=== PATIENT | female | born 1975 | race Two or more races ===

== ENCOUNTER 2016-08-04 10:43 | Inpatient (IN) | payer SELFPAY ==
[~2016-08-04] VITALS: Ht 165.1 cm; Wt 63.0 kg
[~2016-08-04 10:43] MED LIST: OXYC-323 PO
[2016-08-04] MEDS ORDERED: IV NORMAL SALINE 1000ML BAG 1,000 ML IV ONE (11:00)
--- NOTE | 2016-08-04 11:25 | RAD ---
Portable AP view CXR: Clinical indications: Palpitations. Substernal chest pain radiating to the left side. Chills and aches for 3 days which is worse today. Comparison: None available.. Findings: No acute lung infiltrate or pleural effusion or pulmonary edema or lung mass or pneumothorax is seen. The heart size, pulmonary vasculature, mediastinum and both glenny are unremarkable. Impression: No acute radiographic abnormality is seen.
[2016-08-04 11:33] LABS: BASO % 1 % (0-3); EOS % 1 % (0-3); HEMATOCRIT 42.9 % (36.0-47.0); HEMOGLOBIN 14.9 g/dL (12.0-15.5); LYMPH # 1.3 x10^3/uL (1.0-4.8); LYMPH % 20 % (24-48); MEAN CORPUSCULAR HEMOGLOBIN 30 pg (25-35); MEAN CORPUSCULAR HGB CONC 35 g/dL (31-37); MEAN CORPUSCULAR VOLUME 87 fL (79-100); MONO % 6 % (0-9); NEUT % 73 % (31-73); PLATELET COUNT 167 x10^3/uL (140-400); RED BLOOD COUNT 4.95 x10^6/uL (3.50-5.40); RED CELL DISTRIBUTION WIDTH 12.7 % (11.5-14.5); WHITE BLOOD COUNT 6.7 x10^3/uL (4.0-11.0)
[2016-08-04 11:45] LABS: MAGNESIUM 1.5 mg/dL (1.8-2.4)
[2016-08-04 11:46] LABS: BILIRUBIN,URINE NEGATIVE (NEG); GLUCOSE,URINE >=1000 mg/dL (NEG); NITRITE,URINE NEGATIVE (NEG); PH,URINE 6.5; PROTEIN,URINE NEGATIVE (NEG-TRACE); UROBILINOGEN,URINE 0.2 mg/dL (0.2 mg/dL)
--- NOTE | 2016-08-04 11:48 | ED.ADGEN ---
Past Medical History Past Medical History: No Pertinent History Past Surgical History: No Surgical History Alcohol Use: None Drug Use: None Adult General Chief Complaint Chief Complaint: Palpitations HPI HPI Patient is a 41 year old woman, who denies any past history, presents emergency department via EMS with report of palpitations, lightheadedness, shortness of breath. Patient states she has been feeling ill for about 3 days, generalized malaise, with intermittent episodes of "shakiness", fast heartbeat, and shortness of breath, some lightheadedness, but no focal weakness, numbness or tingling, no vertiginous type symptoms. Patient denies any similar symptoms previously. Family history of diabetes in her mother at age 50, patient's Accu- Chek noted to be 460 en route to the emergency department. She denies any history of hyperglycemia. She states she has been urinating more frequently over the past week. Denies any upper respiratory symptoms, any fevers or chills , any recent travel, surgery, medications or illicit substance use. No smoking. Patient works at [employer], states that she was on her way to work when the symptoms began. Patient is not expressing the palpations at this time, she states she feels "shaky all over". Patient speaks Croatian and Syriac, compliance spec used to be a language line to assist with examination and interview. Review of Systems Review of Systems Constitutional: Denies fever or chills. [] Generalized malaise. Eyes: Denies change in visual acuity. [] HENT: Denies nasal congestion or sore throat. [] Respiratory: No cough, positive for shortness of breath. Cardiovascular: Chest pain with palpitations. [] GI: Denies abdominal pain, nausea, vomiting, bloody stools or diarrhea. [] : Denies dysuria. [] Musculoskeletal: Denies back pain or joint pain. [] Integument: Denies rash. [] Neurologic: Denies headache, focal weakness or sensory changes. [] Endocrine: Denies polyuria or polydipsia. [] Lymphatic: Denies swollen glands. [] Psychiatric: Denies depression or anxiety. [] Current Medications Current Medications Current Medications Medications (Trade) Dose Ordered Sig/Radha Start Time Stop Time Status Last Admin Dose Admin Sodium Chloride (Iv Sodium Chloride 0.9% 1000ml Bag) 1,000 ml @ 1,000 mls/hr 1X ONCE 08/04/16 11:00 08/04/16 11:59 DC 08/04/16 11:24 1,000 MLS/HR Allergies Allergies Allergies Coded Allergies Type Severity Reaction Last Updated Verified Penicillins Allergy Severe Anaphylaxis 01/25/15 Yes Physical Exam Physical Exam Constitutional: Well developed, well nourished, no acute distress, non-toxic appearance. [] HENT: Normocephalic, atraumatic, bilateral external ears normal, oropharynx moist, no oral exudates, nose normal. [] Eyes: PERRLA, EOMI, conjunctiva normal, no discharge. [] Neck: Normal range of motion, no tenderness, supple, no stridor. [] Cardiovascular:Heart rate regular rhythm, no murmur , S1, S2, rubs or gallops. [ ] Lungs & Thorax: Bilateral breath sounds clear to auscultation, no wheezing, rhonchi, rales. No chest or crepitus or tenderness. [] Abdomen: Bowel sounds normal, soft, no tenderness, no rebound, rigidity, no guarding, no masses, no pulsatile masses. [] Skin: Warm, dry, no erythema, no rash. [] Back: No tenderness, no CVA tenderness. [] Extremities: No tenderness, no cyanosis, no clubbing, ROM intact, no edema. Negative Homans sign. [] Neurologic: Alert and oriented X 3, normal motor function, normal sensory function, no focal deficits noted. [] Psychologic: Affect normal, judgement normal, mood normal. [] Current Patient Data Vital Signs Vital Signs Date Time Temp Pulse Resp B/P Pulse Ox O2 Delivery O2 Flow Rate FiO2 08/04/16 12:15 74 16 117/75 99 Room Air 08/04/16 10:47 98.6 98.6 Lab Values Laboratory Tests Test 08/04/16 10:22 08/04/16 11:01 08/04/16 11:08 08/04/16 11:10 POC Urine HCG, Qualitative Hcg negative (Negative) Glucose (Fingerstick) 431mg/dL (70-99) H Urine Collection Type Unknown Urine Color Yellow Urine Clarity Clear Urine pH 6.5 Urine Specific Redwood >=1.030 Urine Protein Negativemg/dL (NEG-TRACE) Urine Glucose (UA) >=1000mg/dL (NEG) Urine Ketones (Stick) Tracemg/dL (NEG) Urine Blood Trace (NEG) Urine Nitrite Negative (NEG) Urine Bilirubin Negative (NEG) Urine Urobilinogen Dipstick 0.2mg/dL (0.2 mg/dL) Urine Leukocyte Esterase Moderate (NEG) Urine RBC 6-10/HPF (0-2) Urine WBC 11-20/HPF (0-4) Urine Squamous Epithelial Cells Many/LPF Urine Bacteria Few/HPF (0-FEW) Urine Opiates Screen Neg (NEG) Urine Methadone Screen Neg (NEG) Urine Barbiturates Neg (NEG) Urine Phencyclidine Screen Neg (NEG) Urine Amphetamine/Methamphetamine Neg (NEG) Urine Benzodiazepines Screen Neg (NEG) Urine Cocaine Screen Neg (NEG) Urine Cannabinoids Screen Neg (NEG) Urine Ethyl Alcohol Neg (NEG) White Blood Count 6.7x10^3/uL (4.0-11.0) Red Blood Count 4.95x10^6/uL (3.50-5.40) Hemoglobin 14.9g/dL (12.0-15.5) Hematocrit 42.9% (36.0-47.0) Mean Corpuscular Volume 87fL (79-100) Mean Corpuscular Hemoglobin 30pg (25-35) Mean Corpuscular Hemoglobin Concent 35g/dL (31-37) Red Cell Distribution Width 12.7% (11.5-14.5) Platelet Count 167x10^3/uL (140-400) Neutrophils (%) (Auto) 73% (31-73) Lymphocytes (%) (Auto) 20% (24-48) L Monocytes (%) (Auto) 6% (0-9) Eosinophils (%) (Auto) 1% (0-3) Basophils (%) (Auto) 1% (0-3) Neutrophils # (Auto) 4.9x10^3uL (1.8-7.7) Lymphocytes # (Auto) 1.3x10^3/uL (1.0-4.8) Monocytes # (Auto) 0.4x10^3/uL (0.0-1.1) Eosinophils # (Auto) 0.1x10^3/uL (0.0-0.7) Basophils # (Auto) 0.0x10^3/uL (0.0-0.2) Prothrombin Time 14.3SEC (11.7-14.0) H Prothrombin Time INR 1.2 (0.8-1.1) H PTT 27SEC (24-38) Sodium Level 135mmol/L (136-145) L Potassium Level 3.9mmol/L (3.5-5.1) Chloride Level 101mmol/L (98-107) Carbon Dioxide Level 24mmol/L (21-32) Anion Gap 10 (6-14) Blood Urea Nitrogen 14mg/dL (7-20) Creatinine 0.7mg/dL (0.6-1.0) Estimated GFR (Cockcroft-Gault) 92.2 BUN/Creatinine Ratio 20 (6-20) Glucose Level 430mg/dL (70-99) H Calcium Level 8.8mg/dL (8.5-10.1) Magnesium Level 1.5mg/dL (1.8-2.4) L Total Bilirubin 0.4mg/dL (0.2-1.0) Aspartate Amino Transferase (AST) 15U/L (15-37) Alanine Aminotransferase (ALT) 26U/L (14-59) Alkaline Phosphatase 107U/L (46-116) Troponin I Quantitative < 0.017ng/mL (0.000-0.055) UY-Hew-J-Type Natriuretic Peptide 50pg/mL (0-124) Total Protein 6.7g/dL (6.4-8.2) Albumin 3.4g/dL (3.4-5.0) Albumin/Globulin Ratio 1.0 (1.0-1.7) Lipase 193U/L (73-393) Laboratory Tests 08/04/16 11:10 Laboratory Tests 08/04/16 11:10 EKG EKG EC: Sinus rhythm, heart rate 82 bpm, left axis deviation, QTC of 445, DC 132, QRS of 90, no ST elevations or depressions, abnormal ECG, does not meet STEMI criteria. As interpreted by me. [] Radiology/Procedures Radiology/Procedures [] [facility] [address] [place] [address] IMAGING REPORT Signed PATIENT: MELISSA GONZALEZ ACCOUNT: [id number] : 1975 LOCATION: ER AGE: 41 SEX: F EXAM STATUS: PRE ER ORD. PHYSICIAN: DUGLAS EMERSON DO REASON: Palpitations PROCEDURE: PORTABLE CHEST 1V Portable AP view CXR: Clinical indications: Palpitations. Substernal chest pain radiating to the left side. Chills and aches for 3 days which is worse today. Comparison: None available.. Findings: No acute lung infiltrate or pleural effusion or pulmonary edema or lung mass or pneumothorax is seen. The heart size, pulmonary vasculature, mediastinum and both glenny are unremarkable. Impression: No acute radiographic abnormality is seen. DICTATED and SIGNED BY: AALIYAH COFFEY MD DATE: 08/04/16 112 CC: DUGLAS EMERSON DO; NO PCP ~ Course & Med Decision Making Course & Med Decision Making Pertinent Labs and Imaging studies reviewed. (See chart for details) Patient without recurrence of palpitations at this time in the ED. She states that she is under a lot of stress currently, which she states could be contributing to her symptoms. As stated Accu-Chek is in the 400s, patient is no history of diabetes or other medical problems. Patient's laboratory studies are reveal any evidence of life lab abnormalities or acidosis, ECG noted to have left axis deviation with left anterior fascicular block, no prior for comparison. I did discuss findings as above with Dr. Gonzalez of cardiology, as the patient is very symptoms for 3 days, there is no ability to obtain a Holter monitor at this time, and congestion with the patient's hyperglycemia, he recommends admission to the hospital for continued monitoring and management in the inpatient setting. Patient is agreeable with this plan, after discussion with Dr. Markham of internal medicine, who accepted the patient to his service as a full admission to the cardiac telemetry floor, and with Dr. Gonzalez in the emergency department. Bridge orders entered per discussion. Patient resting comfortably at time of transfer to the floor, sinus rhythm on the monitor. Dragon Disclaimer Dragon Disclaimer This electronic medical record was generated, in whole or in part, using a voice recognition dictation system. Departure Impression: Primary Impression: Palpitations Additional Impressions: Hyperglycemia Chest pain Disposition: ADMITTED INPATIENT Admitting Physician: Mary Markham Condition: IMPROVED Problem Qualifiers DUGLAS EMERSON DO Aug 04, 2016 11:48
[2016-08-04 11:49] LABS: INR 1.2 (0.8-1.1); PROTHROMBIN TIME PATIENT 14.3 SEC (11.7-14.0)
[2016-08-04 11:53] LABS: BARBITURATES NEG (NEG); BENZODIAZEPINES NEG (NEG); CANNABINOIDS NEG (NEG); COCAINE NEG (NEG); METHADONE NEG (NEG); OPIATES NEG (NEG); PHENCYCLIDINE NEG (NEG)
[2016-08-04 12:07] LABS: CALCIUM 8.8 mg/dL (8.5-10.1); CREATININE 0.7 mg/dL (0.6-1.0); GFR 92.2; POTASSIUM 3.9 mmol/L (3.5-5.1)
[2016-08-04 12:12] LABS: BACTERIA,URINE FEW /HPF (0-FEW); SQUAMOUS EPITHELIAL CELL,UR MANY /LPF
[2016-08-04 12:13] LABS: ALBUMIN 3.4 g/dL (3.4-5.0); TOTAL BILIRUBIN 0.4 mg/dL (0.2-1.0); TOTAL PROTEIN 6.7 g/dL (6.4-8.2)
[2016-08-04] MEDS ORDERED: ONDANSETRON PF 4 MG/2 ML VIAL. IV PRN (14:30)
[2016-08-04] MEDS ORDERED: DEXTROSE 50% 25 GM / 50ML DISP.SYRIN. IV PRN (14:30)
[2016-08-04] MEDS ORDERED: NITROGLYCERIN SUBLINGUAL 0.4 MG BOTTLE OF 25. SL PRN (14:30)
[2016-08-04] MEDS ORDERED: ACETAMINOPHEN 325 MG TABLET. PO PRN (14:30)
[2016-08-04] MEDS: IV NORMAL SALINE 1000ML BAG 1,000 ML IV SCH ×2 (14:43→22:19)
--- NOTE | 2016-08-04 14:57 | ACF ---
Admission Forms Criteria CARDIOLOGY GRG Clinical Indications for Admission to Inpatient Care ( Place 'X' for any and all applicable criteria): Hospital admission is needed for appropriate care of the patient because of ANY ONE of the following (1): [ ] I. Hemodynamic instability as indicated by ALL of the following (1)(2)(3) (4)(5) [ ]a) Vital signs or other findings not as expected for chronic patient condition or baseline [ ]b) Instability indicated by ANY ONE of the following: [ ]i) Hypotension [ ]ii) Symptomatic Tachycardia unresponsive to treatment ( e.g., analgesia, fluids, sedation as indicated) [ ]iii) Inadequate perfusion indicated by ANY ONE of the following: [ ] 1) Lactic acidosis (> 2 mmol/L) [ ] 2) New abnormal capillary refill (> 3 seconds) [ ] 3) Reduced urine output [ ] 4) New altered mental status [ ]iv) Orthostatic vital sign changes unresponsive to treatment (e.g., fluids) [ ]v) IV inotropic or vasopressor medication required to maintain adequate blood pressure or perfusion [ ] II. Severe heart failure as indicated by ANY ONE of the following(17)(18) [ ]a) Respiratory distress [ ]b) Hypotension [ ]c) Anasarca (refractory to outpatient therapy) [ ]d) Cardiac arrhythmias of immediate concern [ ]e) Myocardial ischemia [ ] III. Cardiac arrhythmias or findings of immediate concern indicated by ANY ONE of the following (19)(20): [ ] a) Heart rhythms that are inherently dangerous or unstable indicated by ANY ONE of the following (21)(22)(23): [ ] i) Resuscitated ventricular fibrillation or cardiac arrest [ ] ii) Ventricular escape rhythm [ ] iii) Sustained ventricular tachycardia (30 seconds or more of ventricular rhythm at greater than 100 beats per minute) [ ] iv) Nonsustained ventricular tachycardia and ANY ONE of the following: [ ] 1) Suspected cardiac ischemia as cause or consequence of ventricular tachycardia [ ] 2) In setting of acute myocarditis [ ] b) Unstable cardiac conduction defects indicated by ANY ONE of the following(23)(24)(25) [ ] i) Type II second-degree atrioventricular block [ ]ii) Third-degree atrioventricular block [ ]iii) New-onset left bundle branch block with suspected myocardial ischemia [ ]c) Any heart rhythm and ANY ONE of the following (21)(22)(26)(27) (28) [ ] i) Continuous long-term ECG monitoring needed (e.g., initiation of drug requiring monitoring for more than 24 hours) [ ] ii) Patient has automatic implanted cardioverter defibrillator that is repeatedly firing, malfunctioning, or in need of immediate adjustment of settings beyond the scope of ambulatory or observation care [ ]d) Heart rhythms of concern due to ANY ONE of the following: [ ] i) Hypotension [ ] ii) Respiratory distress [ ] iii) Association with other significant symptoms (e.g., bradycardia with syncope or ongoing dizziness, supraventricular tachycardia with chest pain (14)(15)(17) [ ] IV. Monitoring for cardiac contusion beyond the scope of observation care needed [A](30)(31)(32) [ ] V. Surgical or device complication (e.g., valve replacement complication , pacemaker dysfunction) (35)(41)(44)(45)(46) [ ] . Inpatient palliative care needed. [B](49) Also use Inpatient Palliative Care Criteria [ ] VII. Nonbacterial thrombotic (marantic) endocarditis (36)(43)(47)(48) [X] VIII. Cardiology condition, symptom, or finding for which emergency and observation care has failed or are not considered appropriate. [ ] IX. Acute valvular disease requiring inpatient as indicated by ANY ONE of the following (41) [ ]a) Acute valvular regurgitation (42) [ ]b) Noninfectious valvulitis (43) [ ]c) Obstructive valve thrombosis [ ]d) Paravalvular leak [ ]e) Other significant valvular disorder remaining after emergency or observation level of care (as appropriate) [ ]X. Pericardial disease requiring inpatient treatment as indicated by ANY ONE of the following (33)(34)(35)(36)(37) [ ]a) Suspected tamponade (38)(39)(40) [ ]b) Hemopericardium [ ]c) Other significant pericardial disorder remaining after emergency or observation level of care (as appropriate) [ ] XI. Cardiac ischemia beyond scope of emergency and observation care. [ ] XII. Hypertension requiring inpatient treatment as indicated by ANY ONE of the following (6)(7)(8) [ ]a) SBP greater than 220 mm Hg or DBP greater than 120 mmHg despite treatment [ ]b) SBP greater than 140 mm Hg or DBP greater than 100 mm Hg with evidence of acute end organ damage as indicated by ANY ONE of the following [ ] i) Encephalopathy [ ] ii) Acute renal failure as indicated by new onset of ANY ONE of the following (9)(10)(11)(12)(13) [ ]1) 3-fold rise in serum creatinine from baseline [ ]2) Serum creatinine greater than 4 mg/dL ( 354 micromoles/L) with acute rise greater than 0.5 mg/dL (44.2 micromoles/L) [ ]3) Reduction of more than 75% in estimated glomerular filtration rate from baseline [ ]4) Estimated glomerular filtration rate less than 35 mL/min/1.73m2 (0.59 mL/sec/1.73m2) in child up to 18 years of age [ ]5) Cessation of urine output indicated by ALL of the following [ ]A. Adequate volume status [ ]B. Inadequate urine output as indicated by ANY ONE of the following [ ]a. Urine output less than 0.3 mL/kg/hr for 24 hours [ ]b. Anuria (urine output less than 0.1 mL/kg/hr) for 12 hours [ ] iii) Aortic dissection [ ] iv) Myocardial Ischemia [ ] v) Left ventricular heart failure [ ]vi) Retinal Hemorrhage [ ]vii) Other significant finding [ ]c) Hypertension in child requiring inpatient treatment as indicated by ALL of the following(14)(15)(16) [ ] i) Outpatient treatment not effective, not available, or not appropriate [ ]ii) SBP or DBP greater than 95th percentile for age [ ]iii) Evidence of acute end organ damage as indicated by ANY ONE of the following [ ]1) Altered mental status [ ]2) Acute renal failure as indicated by new onset of ANY ONE of the following(9)(10)(11)(12)(13) [ ]A. 3-fold rise in serum creatinine from baseline [ ]B. Serum creatinine greater than 4 mg/dL (354 micromoles/L) with acute rise greater than 0.5 mg/dL (44.2 micromoles/L) [ ]C. Reduction of more than 75% in estimated glomerular filtration rate from baseline [ ]D. Estimated glomerular filtration rate less than 35 mL/min/1.73m2 (0.59 mL/sec/1.73m2) in child up to 18 years of age [ ]E. Cessation of urine output indicated by ALL of the following [ ]a. Adequate volume status [ ]b. Inadequate urine output as indicated by ANY ONE of the following [ ]i) Urine output less than 0.3 mL/kg/hr for 24 hours [ ]ii) Anuria ( urine output less than 0.1 mL/kg/hr) for 12 hours [ ]3) Severe headache [ ]4) Visual disturbance [ ]5) Retinal hemorrhage [ ]6) Other significant finding [ ]XIII. Complications of transplanted heart indicated by ANY ONE of the following(61): [ ]a) Acute graft rejection requiring inpatient management (eg, intravenous immunosuppression)(62)(63) [ ]b) Acute graft heart failure indicated by ANY ONE of the following(64): [ ]i) Hemodynamic instability [ ]ii) Cardiac arrhythmias of immediate concern [ ]iii) Pulmonary edema that is very severe (eg, mechanical ventilation needed, imminent or likely, need for 100% oxygen to keep oxygen saturation above 90%) [ ]iv) Pulmonary edema that is persistent as indicated by ALL of the following: [ ]1) New need for oxygen therapy to keep oxygen saturation above 90% (or increased FiO2 need from baseline) [ ]2) Has not improved sufficiently with emergency department or observation care IV diuretics or other heart failure treatments[E] [ ]v) Altered mental status that is severe or persistent [ ]vi) Increased creatinine (new on laboratory test) with reduction of more than 50% in estimated glomerular filtration rate from baseline [ ]vii) Progressively (ongoing) rising creatinine (known from past laboratory test) with reduction of more than 25% in estimated glomerular filtration rate from baseline [ ]viii) Acute renal failure [ ]ix) Acute peripheral ischemia (eg, examination shows pulseless, cool, mottled, or cyanotic extremity) [ ]x) Pulmonary artery catheter monitoring needed [ ]xi) Other sign or symptom of heart failure requiring inpatient treatment (ie, too severe or not responsive to outpatient and observation care treatment) [ ]c) Infection requiring inpatient management (eg, Hemodynamic instability, need for intravenous antimicrobial treatment)(66)(67)(68)(69)(70) [ ]d) Cardiac allograft vasculopathy requiring inpatient management ( eg evidence of cardiac ischemia)(71) [ ]e) Other complication of transplanted heart (eg, stroke, severe pulmonary hypertension, severe valvular dysfunction) requiring inpatient management(72) The original [facility] content created by [facility] has been revised. The portions of the content which have been revised are identified through the use of italic text or in bold, and [facility] has neither reviewed nor approved the modified material. All other unmodified content is copyright [facility]. Please see references footnoted in the original [facility] edition 2016 Admission Criteria Met?: Yes RACHEL LINDA Aug 04, 2016 14:57
[2016-08-04 15:36] VITALS: BP 125/81
--- NOTE | 2016-08-04 15:57 | PDOC2 ---
CONSULT Date of Consult Date of Consult DATE: 08/04/16 TIME: 15:51 Reason for Consult Reason for Consult: Palpitations Identification/Chief Complaint Chief Complaint Palpitations and dyspnea History of Present Illness Reason for Visit: This patient is a very pleasant but quite apprehensive 41-year-old lady. She denies having any previous cardiac problems. The patient also denies any history of hypertension, diabetes, GI or kidney issues. She was on her way to work when she started feeling palpitations and lightheaded and getting more and more short of breath, she felt shaky all over and was brought to the ER. She did not have any loss of consciousness and by the time that she was brought into the ER the palpitations had stopped. However she was still feeling very shaky, weak and trembling. After arrival in the ER she was found to have a blood sugar of over 400. Her EKG was normal and her cardiac enzymes were negative. At the time that I saw her she denies having any chest pains but appears to be very anxious and teary-eyed. She proceeded to tell me that she was under a lot of stress but would not go into the details of the situation. This is the first time I met the lady. Current Problem List Problem List Problems Medical Problems: (1) Chest pain Status: Acute (2) Hyperglycemia Status: Acute (3) Palpitations Status: Acute Current Medications Current Medications Current Medications Sodium Chloride (Iv Sodium Chloride 0.9% 1000ml Bag) 1,000 ml @ 1,000 mls/hr 1X ONCE IV Last administered on 08/04/16 11:24; Start 08/04/16 at 11:00; Stop 08/04/16 at 11:59; Status DC Ondansetron HCl 4 mg 4 mg PRN Q8HRS PRN IV NAUSEA/VOMITING; Start 08/04/16 at 14:30; Stop 08/05/16 at 14:29 Sodium Chloride (Iv Sodium Chloride 0.9% 1000ml Bag) 1,000 ml @ 125 mls/hr Q8H IV Last administered on 08/04/16 14:43; Start 08/04/16 at 14:18; Stop at 14:17 Acetaminophen (Tylenol) 650 mg PRN Q4HRS PRN PO FEVER Last administered on 08/04 15:31; Start 08/04/16 at 14:30; Stop 08/05/16 at 14:29 Nitroglycerin (Nitrostat) 0.4 mg PRN Q5MIN PRN SL CHEST PAIN; Start 08/04/16 at 14:30; Stop 08/05/16 at 14:29 Insulin Aspart (Novolog) 0-5 UNITS TIDWMEALS SQ ; Start 08/04/16 at 17:00 Dextrose (Dextrose 50%-Water Syringe) 12.5 gm PRN Q15MIN PRN IV SEE COMMENTS; Start 08/04/16 at 14:30 Active Scripts Active Percocet 5-325 Mg Tablet (Oxycodone/Acetaminophen) 1 Each Tablet 1-2 Tab PO Q4- 6HRS Allergies Allergies: Coded Allergies: Penicillins (Verified Allergy, Severe, Anaphylaxis, 01/25/15) Physical Exam General: Alert, Oriented X3, Cooperative, moderate distress HEENT: Atraumatic, PERRLA, Mucous membr. moist/pink Lungs: Clear to auscultation Heart: Regular rate, Normal S1, Normal S2, No murmurs Abdomen: Normal bowel sounds, Soft, No tenderness, No hepatosplenomegaly Extremities: No edema, Normal pulses Psych/Mental Status: Other (patient very apprehensive and cries easily) Vitals VITALS Vital Signs Date Time Temp Pulse Resp B/P Pulse Ox O2 Delivery O2 Flow Rate FiO2 08/04/16 15:36 98.5 71 16 125/81 97 Room Air 98.5 Labs Labs Laboratory Tests Test 08/04/16 10:22 08/04/16 11:01 08/04/16 11:08 08/04/16 11:10 Bedside Urine HCG, Qualitative Hcg negative (Negative) Glucose (Fingerstick) 431mg/dL (70-99) Urine Collection Type Unknown Urine Color Yellow Urine Clarity Clear Urine pH 6.5 Urine Specific Stitzer >=1.030 Urine Protein Negativemg/dL (NEG-TRACE) Urine Glucose (UA) >=1000mg/dL (NEG) Urine Ketones (Stick) Tracemg/dL (NEG) Urine Blood Trace (NEG) Urine Nitrite Negative (NEG) Urine Bilirubin Negative (NEG) Urine Urobilinogen Dipstick 0.2mg/dL (0.2 mg/dL) Urine Leukocyte Esterase Moderate (NEG) Urine RBC 6-10/HPF (0-2) Urine WBC 11-20/HPF (0-4) Urine Squamous Epithelial Cells Many/LPF Urine Bacteria Few/HPF (0-FEW) Urine Opiates Screen Neg (NEG) Urine Methadone Screen Neg (NEG) Urine Barbiturates Neg (NEG) Urine Phencyclidine Screen Neg (NEG) Urine Amphetamine/Methamphetamine Neg (NEG) Urine Benzodiazepines Screen Neg (NEG) Urine Cocaine Screen Neg (NEG) Urine Cannabinoids Screen Neg (NEG) Urine Ethyl Alcohol Neg (NEG) White Blood Count 6.7x10^3/uL (4.0-11.0) Red Blood Count 4.95x10^6/uL (3.50-5.40) Hemoglobin 14.9g/dL (12.0-15.5) Hematocrit 42.9% (36.0-47.0) Mean Corpuscular Volume 87fL (79-100) Mean Corpuscular Hemoglobin 30pg (25-35) Mean Corpuscular Hemoglobin Concent 35g/dL (31-37) Red Cell Distribution Width 12.7% (11.5-14.5) Platelet Count 167x10^3/uL (140-400) Neutrophils (%) (Auto) 73% (31-73) Lymphocytes (%) (Auto) 20% (24-48) Monocytes (%) (Auto) 6% (0-9) Eosinophils (%) (Auto) 1% (0-3) Basophils (%) (Auto) 1% (0-3) Neutrophils # (Auto) 4.9x10^3uL (1.8-7.7) Lymphocytes # (Auto) 1.3x10^3/uL (1.0-4.8) Monocytes # (Auto) 0.4x10^3/uL (0.0-1.1) Eosinophils # (Auto) 0.1x10^3/uL (0.0-0.7) Basophils # (Auto) 0.0x10^3/uL (0.0-0.2) Prothrombin Time 14.3SEC (11.7-14.0) Prothromb Time International Ratio 1.2 (0.8-1.1) Activated Partial Thromboplast Time 27SEC (24-38) Sodium Level 135mmol/L (136-145) Potassium Level 3.9mmol/L (3.5-5.1) Chloride Level 101mmol/L (98-107) Carbon Dioxide Level 24mmol/L (21-32) Anion Gap 10 (6-14) Blood Urea Nitrogen 14mg/dL (7-20) Creatinine 0.7mg/dL (0.6-1.0) Estimated GFR (Cockcroft-Gault) 92.2 BUN/Creatinine Ratio 20 (6-20) Glucose Level 430mg/dL (70-99) Calcium Level 8.8mg/dL (8.5-10.1) Magnesium Level 1.5mg/dL (1.8-2.4) Total Bilirubin 0.4mg/dL (0.2-1.0) Aspartate Amino Transf (AST/SGOT) 15U/L (15-37) Alanine Aminotransferase (ALT/SGPT) 26U/L (14-59) Alkaline Phosphatase 107U/L (46-116) Troponin I Quantitative < 0.017ng/mL (0.000-0.055) SF-Gcj-O-Type Natriuretic Peptide 50pg/mL (0-124) Total Protein 6.7g/dL (6.4-8.2) Albumin 3.4g/dL (3.4-5.0) Albumin/Globulin Ratio 1.0 (1.0-1.7) Lipase 193U/L (73-393) Laboratory Tests Test 08/04/16 10:22 08/04/16 11:01 08/04/16 11:08 08/04/16 11:10 Bedside Urine HCG, Qualitative Hcg negative (Negative) Glucose (Fingerstick) 431mg/dL (70-99) Urine Collection Type Unknown Urine Color Yellow Urine Clarity Clear Urine pH 6.5 Urine Specific Stitzer >=1.030 Urine Protein Negativemg/dL (NEG-TRACE) Urine Glucose (UA) >=1000mg/dL (NEG) Urine Ketones (Stick) Tracemg/dL (NEG) Urine Blood Trace (NEG) Urine Nitrite Negative (NEG) Urine Bilirubin Negative (NEG) Urine Urobilinogen Dipstick 0.2mg/dL (0.2 mg/dL) Urine Leukocyte Esterase Moderate (NEG) Urine RBC 6-10/HPF (0-2) Urine WBC 11-20/HPF (0-4) Urine Squamous Epithelial Cells Many/LPF Urine Bacteria Few/HPF (0-FEW) Urine Opiates Screen Neg (NEG) Urine Methadone Screen Neg (NEG) Urine Barbiturates Neg (NEG) Urine Phencyclidine Screen Neg (NEG) Urine Amphetamine/Methamphetamine Neg (NEG) Urine Benzodiazepines Screen Neg (NEG) Urine Cocaine Screen Neg (NEG) Urine Cannabinoids Screen Neg (NEG) Urine Ethyl Alcohol Neg (NEG) White Blood Count 6.7x10^3/uL (4.0-11.0) Red Blood Count 4.95x10^6/uL (3.50-5.40) Hemoglobin 14.9g/dL (12.0-15.5) Hematocrit 42.9% (36.0-47.0) Mean Corpuscular Volume 87fL (79-100) Mean Corpuscular Hemoglobin 30pg (25-35) Mean Corpuscular Hemoglobin Concent 35g/dL (31-37) Red Cell Distribution Width 12.7% (11.5-14.5) Platelet Count 167x10^3/uL (140-400) Neutrophils (%) (Auto) 73% (31-73) Lymphocytes (%) (Auto) 20% (24-48) Monocytes (%) (Auto) 6% (0-9) Eosinophils (%) (Auto) 1% (0-3) Basophils (%) (Auto) 1% (0-3) Neutrophils # (Auto) 4.9x10^3uL (1.8-7.7) Lymphocytes # (Auto) 1.3x10^3/uL (1.0-4.8) Monocytes # (Auto) 0.4x10^3/uL (0.0-1.1) Eosinophils # (Auto) 0.1x10^3/uL (0.0-0.7) Basophils # (Auto) 0.0x10^3/uL (0.0-0.2) Prothrombin Time 14.3SEC (11.7-14.0) Prothromb Time International Ratio 1.2 (0.8-1.1) Activated Partial Thromboplast Time 27SEC (24-38) Sodium Level 135mmol/L (136-145) Potassium Level 3.9mmol/L (3.5-5.1) Chloride Level 101mmol/L (98-107) Carbon Dioxide Level 24mmol/L (21-32) Anion Gap 10 (6-14) Blood Urea Nitrogen 14mg/dL (7-20) Creatinine 0.7mg/dL (0.6-1.0) Estimated GFR (Cockcroft-Gault) 92.2 BUN/Creatinine Ratio 20 (6-20) Glucose Level 430mg/dL (70-99) Calcium Level 8.8mg/dL (8.5-10.1) Magnesium Level 1.5mg/dL (1.8-2.4) Total Bilirubin 0.4mg/dL (0.2-1.0) Aspartate Amino Transf (AST/SGOT) 15U/L (15-37) Alanine Aminotransferase (ALT/SGPT) 26U/L (14-59) Alkaline Phosphatase 107U/L (46-116) Troponin I Quantitative < 0.017ng/mL (0.000-0.055) ZN-Xde-Q-Type Natriuretic Peptide 50pg/mL (0-124) Total Protein 6.7g/dL (6.4-8.2) Albumin 3.4g/dL (3.4-5.0) Albumin/Globulin Ratio 1.0 (1.0-1.7) Lipase 193U/L (73-393) Assessment/Plan Assessment/Plan This patient comes in with palpitations and a newly diagnosed diabetes. In addition to that she appears to be very apprehensive and anxious and she may be in a very stressful situation that she would not comment on what it is. From a cardiac standpoint I would recommend to admit the patient and monitor her and get an echocardiogram in the morning. Depending on the results of the test and the monitor will then make further recommendations as far as her heart. Thank you very much for asking me to participate in the care of this patient LAWSON ROONEY MD Aug 04, 2016 15:57
[2016-08-04 15:59] VITALS: BP 125/81
[2016-08-04] MEDS ORDERED: HYDROcodone/APAP 5/325MG 1 TAB TABLET PO PRN (17:30)
[2016-08-04] MEDS: INSULIN ASPART 300 UNITS/3 ML INSULN.PEN SQ SCH ×3 (18:00→20:47)
[2016-08-04 19:25] VITALS: BP 105/89
[2016-08-04] MEDS ORDERED: INSULIN DETEMIR 300 UNITS/3 ML INSULN.PEN. SQ SCH (21:00)
[2016-08-04 22:13] VITALS: BP 116/73
--- NOTE | 2016-08-04 23:05 | HP ---
ADMIT DATE: 08/04/2016 CHIEF COMPLAINT: Palpitations. HISTORY OF PRESENT ILLNESS: The patient is a pleasant middle-aged female who presents with palpitations. While in the ER, she is noted to have a glucose of 430 and she does not carry a diagnosis of diabetes. I have discussed the case with the ER physician. We are going to admit the patient and check her cardiac enzymes and get her diabetes under control. PAST MEDICAL HISTORY: Her new onset diabetes is under control. PAST MEDICAL HISTORY: None. ALLERGIES: PENICILLIN. FAMILY HISTORY: Diabetes. SOCIAL HISTORY: She does not drink, smoke or take drugs. MEDICATIONS: Reviewed, please refer to the MRAD. REVIEW OF SYSTEMS: GENERAL: No history of weight change, weakness or fevers. SKIN: No bruising, hair changes or rashes. EYES: No blurred, double or loss of vision. NOSE AND THROAT: No history of nosebleeds, hoarseness or sore throat. HEART: She complains of palpitations. LUNGS: Denies cough, hemoptysis, wheezing or shortness of breath. GASTROINTESTINAL: She complains of some slight nausea. GENITOURINARY: No history of frequency, urgency, hesitancy or nocturia. NEUROLOGIC: Denies history of numbness, tingling, tremor or weakness. PSYCHIATRIC: No history of panic, anxiety or depression. ENDOCRINE: No history of heat or cold intolerance, polyuria or polydipsia. EXTREMITIES: Denies muscle weakness, joint pain, pain on walking or stiffness. PHYSICAL EXAMINATION: VITAL SIGNS: Temperature afebrile, pulse 68, respirations 18, blood pressure 144/91. GENERAL: She is alert, cooperative. HEART: Normal S1, S2. LUNGS: Clear. ABDOMEN: Soft, decreased bowel sounds. EXTREMITIES: No edema. SKIN: No rashes. PSYCHIATRIC: She is stable. VASCULAR: Good capillary refill. ENDOCRINE: No thyromegaly. LYMPHATICS: No cervical nodes. HEMATOPOIETIC: No bruising. ASSESSMENT AND PLAN: New-onset diabetes with palpitations. The patient has been admitted. We will check serial enzymes, serial EKGs to make sure she does not have coronary artery disease, but I think the real problem here is just her new-onset diabetes is out of control, sliding scale insulin. We will start NovoLog 5 t.i.d. with meals, Lantus 10 at bedtime, diabetic education. TYLER GEORGE DO DR: Ed JOB#: [id number] / [id number]
[2016-08-04] MEDS: HYDROcodone/APAP 5/325MG 1 TAB TABLET PO PRN (23:50)
[2016-08-05 02:37] VITALS: BP 111/68
[2016-08-05 05:50] LABS: BASO # 0.1 x10^3/uL (0.0-0.2); BASO % 1 % (0-3); EOS % 2 % (0-3); HEMATOCRIT 40.2 % (36.0-47.0); HEMOGLOBIN 13.5 g/dL (12.0-15.5); LYMPH # 2.9 x10^3/uL (1.0-4.8); LYMPH % 35 % (24-48); MEAN CORPUSCULAR HEMOGLOBIN 30 pg (25-35); MEAN CORPUSCULAR HGB CONC 34 g/dL (31-37); MEAN CORPUSCULAR VOLUME 89 fL (79-100); MONO % 6 % (0-9); NEUT % 57 % (31-73); PLATELET COUNT 163 x10^3/uL (140-400); RED BLOOD COUNT 4.54 x10^6/uL (3.50-5.40); RED CELL DISTRIBUTION WIDTH 12.9 % (11.5-14.5); WHITE BLOOD COUNT 8.3 x10^3/uL (4.0-11.0)
[2016-08-05 06:04] LABS: CALCIUM 8.6 mg/dL (8.5-10.1); CREATININE 0.7 mg/dL (0.6-1.0); GFR 92.2; POTASSIUM 3.7 mmol/L (3.5-5.1)
[2016-08-05] MEDS: IV NORMAL SALINE 1000ML BAG 1,000 ML IV SCH (06:50)
--- NOTE | 2016-08-05 07:45 | EKG ---
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
[2016-08-05 07:55] VITALS: BP 114/82
[2016-08-05] MEDS: INSULIN ASPART 300 UNITS/3 ML INSULN.PEN SQ SCH ×6 (08:14→17:09)
[2016-08-05] MEDS: HYDROcodone/APAP 5/325MG 1 TAB TABLET PO PRN ×2 (08:19→20:00)
[2016-08-05 10:32] VITALS: BP 94/53
--- NOTE | 2016-08-05 14:12 | PDOC ---
PROGRESS NOTES Chief Complaint Chief Complaint cc: palpitations, sob, newly diagnosed diabetes mellitus History of Present Illness History of Present Illness Patient seen and evaluated at bedside. No acute events overnight. Patient's blood glucose remained high this AM. Patient notes reproducible chest pain this morning, however, her heart rate is at a normal rate in the 70s and in sinus rhythm. d/w nurse about plan of care. Vitals Vitals Vital Signs Date Time Temp Pulse Resp B/P Pulse Ox O2 Delivery O2 Flow Rate FiO2 08/05/16 12:09 16 97 Room Air 08/05/16 10:32 97.8 78 94/53 97.8 Physical Exam General: Alert, Oriented X3, Cooperative, No acute distress, moderate distress Heart: Regular rate, Normal S1, Normal S2, No murmurs, Other (reproducible sternal chest wall pain. ) Lungs: Clear, Other (negative chest retractions and/or other accessory muscle use. ) Abdomen: Normal bowel sounds, Soft, No tenderness, No hepatosplenomegaly Extremities: No edema, Normal pulses Skin: No rashes Labs LABS Laboratory Tests Test 08/04/16 17:30 08/04/16 17:40 08/04/16 20:38 08/04/16 22:45 Troponin I Quantitative < 0.017ng/mL (0.000-0.055) < 0.017ng/mL (0.000-0.055) Glucose (Fingerstick) 383mg/dL (70-99) 356mg/dL (70-99) Test 08/05/16 05:00 08/05/16 08:10 08/05/16 09:23 08/05/16 12:02 White Blood Count 8.3x10^3/uL (4.0-11.0) Red Blood Count 4.54x10^6/uL (3.50-5.40) Hemoglobin 13.5g/dL (12.0-15.5) Hematocrit 40.2% (36.0-47.0) Mean Corpuscular Volume 89fL (79-100) Mean Corpuscular Hemoglobin 30pg (25-35) Mean Corpuscular Hemoglobin Concent 34g/dL (31-37) Red Cell Distribution Width 12.9% (11.5-14.5) Platelet Count 163x10^3/uL (140-400) Neutrophils (%) (Auto) 57% (31-73) Lymphocytes (%) (Auto) 35% (24-48) Monocytes (%) (Auto) 6% (0-9) Eosinophils (%) (Auto) 2% (0-3) Basophils (%) (Auto) 1% (0-3) Neutrophils # (Auto) 4.7x10^3uL (1.8-7.7) Lymphocytes # (Auto) 2.9x10^3/uL (1.0-4.8) Monocytes # (Auto) 0.5x10^3/uL (0.0-1.1) Eosinophils # (Auto) 0.1x10^3/uL (0.0-0.7) Basophils # (Auto) 0.1x10^3/uL (0.0-0.2) Sodium Level 137mmol/L (136-145) Potassium Level 3.7mmol/L (3.5-5.1) Chloride Level 103mmol/L (98-107) Carbon Dioxide Level 23mmol/L (21-32) Anion Gap 11 (6-14) Blood Urea Nitrogen 16mg/dL (7-20) Creatinine 0.7mg/dL (0.6-1.0) Estimated GFR (Cockcroft-Gault) 92.2 Glucose Level 321mg/dL (70-99) Calcium Level 8.6mg/dL (8.5-10.1) Glucose (Fingerstick) 236mg/dL (70-99) 274mg/dL (70-99) 289mg/dL (70-99) Review of Systems Review of Systems (+) reproducible midline chest wall pain to the sternum Denies sob, palpitations, abdominal pain, n/v/d, or fever/chills. Assessment and Plan Assessmemt and Plan Problems Medical Problems: (1) Chest pain Status: Acute (2) Hyperglycemia Status: Acute (3) Palpitations Status: Acute Assessment: 1.) palpitations 2.) newly diagnosed diabetes mellitus 3.) situational anxiety 4.) hypomagnesemia Plan: 1.) continue on telemetry monitoring 2.) plan for echocardiogram for evaluation, per cardiology 3.) start 2mg Amaril PO daily with increase of novalog to 10units TID AC and lantus to 20units QHS. continue SSI with glucose checks AC 4.) replete magnesium 5.) monitor am labs 6.) appreciate subspeciality input 7.) probable discharge tomorrow when glucose levels normalize and when okay with cardiology. Problems: Comment Review of Relevant I have reviewed the following items tami (where applicable) has been applied. Labs Laboratory Tests Test 08/04/16 10:22 08/04/16 11:01 08/04/16 11:08 08/04/16 11:10 Bedside Urine HCG, Qualitative Hcg negative (Negative) Glucose (Fingerstick) 431mg/dL (70-99) Urine Collection Type Unknown Urine Color Yellow Urine Clarity Clear Urine pH 6.5 Urine Specific [place] >=1.030 Urine Protein Negativemg/dL (NEG-TRACE) Urine Glucose (UA) >=1000mg/dL (NEG) Urine Ketones (Stick) Tracemg/dL (NEG) Urine Blood Trace (NEG) Urine Nitrite Negative (NEG) Urine Bilirubin Negative (NEG) Urine Urobilinogen Dipstick 0.2mg/dL (0.2 mg/dL) Urine Leukocyte Esterase Moderate (NEG) Urine RBC 6-10/HPF (0-2) Urine WBC 11-20/HPF (0-4) Urine Squamous Epithelial Cells Many/LPF Urine Bacteria Few/HPF (0-FEW) Urine Opiates Screen Neg (NEG) Urine Methadone Screen Neg (NEG) Urine Barbiturates Neg (NEG) Urine Phencyclidine Screen Neg (NEG) Urine Amphetamine/Methamphetamine Neg (NEG) Urine Benzodiazepines Screen Neg (NEG) Urine Cocaine Screen Neg (NEG) Urine Cannabinoids Screen Neg (NEG) Urine Ethyl Alcohol Neg (NEG) White Blood Count 6.7x10^3/uL (4.0-11.0) Red Blood Count 4.95x10^6/uL (3.50-5.40) Hemoglobin 14.9g/dL (12.0-15.5) Hematocrit 42.9% (36.0-47.0) Mean Corpuscular Volume 87fL (79-100) Mean Corpuscular Hemoglobin 30pg (25-35) Mean Corpuscular Hemoglobin Concent 35g/dL (31-37) Red Cell Distribution Width 12.7% (11.5-14.5) Platelet Count 167x10^3/uL (140-400) Neutrophils (%) (Auto) 73% (31-73) Lymphocytes (%) (Auto) 20% (24-48) Monocytes (%) (Auto) 6% (0-9) Eosinophils (%) (Auto) 1% (0-3) Basophils (%) (Auto) 1% (0-3) Neutrophils # (Auto) 4.9x10^3uL (1.8-7.7) Lymphocytes # (Auto) 1.3x10^3/uL (1.0-4.8) Monocytes # (Auto) 0.4x10^3/uL (0.0-1.1) Eosinophils # (Auto) 0.1x10^3/uL (0.0-0.7) Basophils # (Auto) 0.0x10^3/uL (0.0-0.2) Prothrombin Time 14.3SEC (11.7-14.0) Prothromb Time International Ratio 1.2 (0.8-1.1) Activated Partial Thromboplast Time 27SEC (24-38) Sodium Level 135mmol/L (136-145) Potassium Level 3.9mmol/L (3.5-5.1) Chloride Level 101mmol/L (98-107) Carbon Dioxide Level 24mmol/L (21-32) Anion Gap 10 (6-14) Blood Urea Nitrogen 14mg/dL (7-20) Creatinine 0.7mg/dL (0.6-1.0) Estimated GFR (Cockcroft-Gault) 92.2 BUN/Creatinine Ratio 20 (6-20) Glucose Level 430mg/dL (70-99) Calcium Level 8.8mg/dL (8.5-10.1) Magnesium Level 1.5mg/dL (1.8-2.4) Total Bilirubin 0.4mg/dL (0.2-1.0) Aspartate Amino Transf (AST/SGOT) 15U/L (15-37) Alanine Aminotransferase (ALT/SGPT) 26U/L (14-59) Alkaline Phosphatase 107U/L (46-116) Troponin I Quantitative < 0.017ng/mL (0.000-0.055) OV-Urp-F-Type Natriuretic Peptide 50pg/mL (0-124) Total Protein 6.7g/dL (6.4-8.2) Albumin 3.4g/dL (3.4-5.0) Albumin/Globulin Ratio 1.0 (1.0-1.7) Lipase 193U/L (73-393) Test 08/04/16 17:30 08/04/16 17:40 08/04/16 20:38 08/04/16 22:45 Troponin I Quantitative < 0.017ng/mL (0.000-0.055) < 0.017ng/mL (0.000-0.055) Glucose (Fingerstick) 383mg/dL (70-99) 356mg/dL (70-99) Test 08/05/16 05:00 08/05/16 08:10 08/05/16 09:23 08/05/16 12:02 White Blood Count 8.3x10^3/uL (4.0-11.0) Red Blood Count 4.54x10^6/uL (3.50-5.40) Hemoglobin 13.5g/dL (12.0-15.5) Hematocrit 40.2% (36.0-47.0) Mean Corpuscular Volume 89fL (79-100) Mean Corpuscular Hemoglobin 30pg (25-35) Mean Corpuscular Hemoglobin Concent 34g/dL (31-37) Red Cell Distribution Width 12.9% (11.5-14.5) Platelet Count 163x10^3/uL (140-400) Neutrophils (%) (Auto) 57% (31-73) Lymphocytes (%) (Auto) 35% (24-48) Monocytes (%) (Auto) 6% (0-9) Eosinophils (%) (Auto) 2% (0-3) Basophils (%) (Auto) 1% (0-3) Neutrophils # (Auto) 4.7x10^3uL (1.8-7.7) Lymphocytes # (Auto) 2.9x10^3/uL (1.0-4.8) Monocytes # (Auto) 0.5x10^3/uL (0.0-1.1) Eosinophils # (Auto) 0.1x10^3/uL (0.0-0.7) Basophils # (Auto) 0.1x10^3/uL (0.0-0.2) Sodium Level 137mmol/L (136-145) Potassium Level 3.7mmol/L (3.5-5.1) Chloride Level 103mmol/L (98-107) Carbon Dioxide Level 23mmol/L (21-32) Anion Gap 11 (6-14) Blood Urea Nitrogen 16mg/dL (7-20) Creatinine 0.7mg/dL (0.6-1.0) Estimated GFR (Cockcroft-Gault) 92.2 Glucose Level 321mg/dL (70-99) Calcium Level 8.6mg/dL (8.5-10.1) Glucose (Fingerstick) 236mg/dL (70-99) 274mg/dL (70-99) 289mg/dL (70-99) Laboratory Tests Test 08/04/16 17:30 08/04/16 17:40 08/04/16 20:38 08/04/16 22:45 Troponin I Quantitative < 0.017ng/mL (0.000-0.055) < 0.017ng/mL (0.000-0.055) Glucose (Fingerstick) 383mg/dL (70-99) 356mg/dL (70-99) Test 08/05/16 05:00 08/05/16 08:10 08/05/16 09:23 08/05/16 12:02 White Blood Count 8.3x10^3/uL (4.0-11.0) Red Blood Count 4.54x10^6/uL (3.50-5.40) Hemoglobin 13.5g/dL (12.0-15.5) Hematocrit 40.2% (36.0-47.0) Mean Corpuscular Volume 89fL (79-100) Mean Corpuscular Hemoglobin 30pg (25-35) Mean Corpuscular Hemoglobin Concent 34g/dL (31-37) Red Cell Distribution Width 12.9% (11.5-14.5) Platelet Count 163x10^3/uL (140-400) Neutrophils (%) (Auto) 57% (31-73) Lymphocytes (%) (Auto) 35% (24-48) Monocytes (%) (Auto) 6% (0-9) Eosinophils (%) (Auto) 2% (0-3) Basophils (%) (Auto) 1% (0-3) Neutrophils # (Auto) 4.7x10^3uL (1.8-7.7) Lymphocytes # (Auto) 2.9x10^3/uL (1.0-4.8) Monocytes # (Auto) 0.5x10^3/uL (0.0-1.1) Eosinophils # (Auto) 0.1x10^3/uL (0.0-0.7) Basophils # (Auto) 0.1x10^3/uL (0.0-0.2) Sodium Level 137mmol/L (136-145) Potassium Level 3.7mmol/L (3.5-5.1) Chloride Level 103mmol/L (98-107) Carbon Dioxide Level 23mmol/L (21-32) Anion Gap 11 (6-14) Blood Urea Nitrogen 16mg/dL (7-20) Creatinine 0.7mg/dL (0.6-1.0) Estimated GFR (Cockcroft-Gault) 92.2 Glucose Level 321mg/dL (70-99) Calcium Level 8.6mg/dL (8.5-10.1) Glucose (Fingerstick) 236mg/dL (70-99) 274mg/dL (70-99) 289mg/dL (70-99) Medications Current Medications Sodium Chloride (Iv Sodium Chloride 0.9% 1000ml Bag) 1,000 ml @ 1,000 mls/hr 1X ONCE IV Last administered on 08/04/16 11:24; Start 08/04/16 at 11:00; Stop 08/04/16 at 11:59; Status DC Ondansetron HCl 4 mg 4 mg PRN Q8HRS PRN IV NAUSEA/VOMITING; Start 08/04/16 at 14:30; Stop 08/05/16 at 14:29 Sodium Chloride (Iv Sodium Chloride 0.9% 1000ml Bag) 1,000 ml @ 125 mls/hr Q8H IV Last administered on 08/05/16 06:50; Start 08/04/16 at 14:18; Stop at 14:17 Acetaminophen (Tylenol) 650 mg PRN Q4HRS PRN PO FEVER Last administered on 08/04 15:31; Start 08/04/16 at 14:30; Stop 08/05/16 at 14:29 Nitroglycerin (Nitrostat) 0.4 mg PRN Q5MIN PRN SL CHEST PAIN; Start 08/04/16 at 14:30; Stop 08/05/16 at 14:29 Insulin Aspart (Novolog) 0-5 UNITS TIDWMEALS SQ Last administered on 08/05/16 12:08; Start 08/04/16 at 17:00 Dextrose (Dextrose 50%-Water Syringe) 12.5 gm PRN Q15MIN PRN IV SEE COMMENTS; Start 08/04/16 at 14:30 Acetaminophen/ Hydrocodone Bitart (Lortab 5/325) 1 tab PRN Q6HRS PRN PO PAIN Last administered on 08/04/16 17:41; Start 08/04/16 at 17:30; Stop 08/04/16 at 19:30; Status DC Insulin Aspart (Novolog) 5 units TIDAC SQ Last administered on 08/05/16 12:07 ; Start 08/04/16 at 18:00 Insulin Detemir (Levemir) 10 units QHS SQ Last administered on 08/04/16 20:47 ; Start 08/04/16 at 21:00 Acetaminophen/ Hydrocodone Bitart (Lortab 5/325) 2 tab PRN Q6HRS PRN PO PAIN Last administered on 08/05/16 08:19; Start 08/04/16 at 19:30 Active Scripts Active Percocet 5-325 Mg Tablet (Oxycodone/Acetaminophen) 1 Each Tablet 1-2 Tab PO Q4- 6HRS Vitals/I & O Vital Sign - Last 24 Hours 08/04/16 08/04/16 08/04/16 08/04/16 14:15 15:36 15:59 17:41 Temp 98.5 98.5 98.5 98.5 Pulse 71 71 71 Resp 16 16 16 16 B/P 118/81 125/81 125/81 Pulse Ox 100 97 97 O2 Delivery Room Air Room Air 08/04/16 08/04/16 08/04/16 08/04/16 19:25 19:25 22:13 23:50 Temp 97.8 97.8 97.8 97.8 Pulse 87 82 Resp 18 18 16 B/P 105/89 116/73 Pulse Ox 96 98 O2 Delivery Room Air Room Air Room Air 08/05/16 08/05/16 08/05/16 08/05/16 02:37 07:55 08:00 08:19 Temp 97.6 97.8 97.6 97.8 Pulse 64 72 Resp 16 18 16 B/P 111/68 114/82 Pulse Ox 97 97 97 O2 Delivery Room Air Room Air Room Air 08/05/16 08/05/16 10:32 12:09 Temp 97.8 97.8 Pulse 78 Resp 20 16 B/P 94/53 Pulse Ox 97 97 O2 Delivery Room Air Room Air Intake and Output 08/04/16 08/04/16 08/05/16 15:00 23:00 07:00 Intake Total 1000 ml 1540 ml 2000 ml Balance 1000 ml 1540 ml 2000 ml TYLER GEORGE III DO Aug 05, 2016 14:12
[2016-08-05] MEDS ORDERED: MAGNESIUM SULFATE 2GM 50 ML IV ONE (14:30)
[2016-08-05 14:45] VITALS: BP 102/68
--- NOTE | 2016-08-05 15:08 | CARD ---
APPROVED REPORT EXAM: Two-dimensional and M-mode echocardiogram with Doppler and color Doppler. Other Information Quality : Average Rhythm : NSR INDICATION Palpitations Chest Pain 2D DIMENSIONS Left Atrium(2D)2.5 (1.6-4.0cm)IVSd0.8 (0.7-1.1cm) Aortic Root(2D)2.0 (2.0-3.7cm)LVDd4.2 (3.9-5.9cm) LVOT Diameter2.0 (1.8-2.4cm)PWd0.8 (0.7-1.1cm) LVDs2.7 (2.5-4.0cm)FS (%) 35.2 % SV50.0 mlLVEF(%)65.0 (>50%) Aortic Valve AoV Peak Arnoldo.128.7cm/sAoV VTI25.4cm AO Peak GR.6.6mmHgLVOT VTI 19.38cm AO Mean GR.4mmHg Mitral Valve MV E Edcqrlvj69.7cm/sMV E Peak Gr.3mmHg MV DECEL [id number] A Oskcujdy16.1cm/s MV ZSD56lbV/A Ratio1.2 MV A [id number] (PHT)3.55cm2 TDI Lateral E' P. V14.31cm/sMedial E' P. V14.90cm/s E/Lateral E'5.3E/Medial E'5.1 Tricuspid Valve TR P. [id number]/sRAP [id number] TR Peak Gr.57olDsDUBN80cwKx LEFT VENTRICLE The left ventricle is normal size. There is normal left ventricular wall thickness. Left ventricle sy stolic function is normal. The Ejection Fraction is 65%. There is normal LV segmental wall motion. Th e left ventricular diastolic function and filling is normal for age. RIGHT VENTRICLE The right ventricle is normal size. The right ventricular systolic function is normal. ATRIA The left atrium size is normal. The right atrium size is normal. The interatrial septum is intact wit h no evidence for an atrial septal defect or patent foramen ovale as noted on 2-D or Doppler imaging. AORTIC VALVE The aortic valve is normal in structure and function. The aortic valve is trileaflet. Doppler and Col or Flow revealed no significant aortic regurgitation. There is no significant aortic valvular stenosi s. MITRAL VALVE The mitral valve is normal in structure and function. There is no mitral valve stenosis. Doppler and Color Flow revealed no mitral valve regurgitation noted. TRICUSPID VALVE The tricuspid valve is normal in structure Doppler and Color Flow revealed trace to mild tricuspid re gurgitation. The PA pressure was estimated at 32 mmHg. There is no tricuspid valve stenosis. PULMONIC VALVE The pulmonic valve is not well visualized. Doppler and Color Flow revealed no pulmonic valvular regur gitation. There is no pulmonic valvular stenosis. GREAT VESSELS The aortic root is normal in size. Pulmonary veins not recorded. The IVC is normal in size and collap ses >50% with inspiration. PERICARDIAL EFFUSION There is no evidence of significant pericardial effusion. Critical Notification Critical Value: No <Conclusion> Left ventricle systolic function is normal. The Ejection Fraction is 65%. The left atrium size is normal. The right atrium size is normal. The aortic valve is normal in structure and function. The aortic valve is trileaflet. The mitral valve is normal in structure and function. Doppler and Color Flow revealed trace to mild tricuspid regurgitation. The PA pressure was estimated at 32 mmHg. The pulmonic valve is not well visualized. There is no evidence of significant pericardial effusion.
--- NOTE | 2016-08-05 15:42 | PDOC ---
PROGRESS NOTES Subjective Subjective Patient feels weak and lightheaded. She got up and was feeling dizzy. Blood sugars are doing better. Treatment for the diabetes has been initiated. The echocardiogram was done and it is normal. She has been in sinus rhythm since she arrived. Objective Objective Vital Signs Date Time Temp Pulse Resp B/P Pulse Ox O2 Delivery O2 Flow Rate FiO2 08/05/16 14:45 98.0 75 17 102/68 98 Room Air 98.0 Intake and Output 08/05/16 07:00 Intake Total 4540 ml Balance 4540 ml Intake Oral 1540 ml IV Total 1000 ml Blood Product IV Normal Saline Flush 500 ml Other 1500 ml # Voids 2 # Bowel Movements 1 Physical Exam Physical Exam No significant changes in cardiac exam Assessment Assessment Patient has been in sinus rhythm. I would like to get a stress test in the morning and then depending on the results will have further cardiac recommendations. I agree with the plans for the diabetes control. Problems Medical Problems: (1) Chest pain Status: Acute (2) Hyperglycemia Status: Acute (3) Palpitations Status: Acute Comment Review of Relevant I have reviewed the following items tami (where applicable) has been applied. Labs Laboratory Tests Test 08/04/16 10:22 08/04/16 11:01 08/04/16 11:08 08/04/16 11:10 Bedside Urine HCG, Qualitative Hcg negative (Negative) Glucose (Fingerstick) 431mg/dL (70-99) Urine Collection Type Unknown Urine Color Yellow Urine Clarity Clear Urine pH 6.5 Urine Specific [place] >=1.030 Urine Protein Negativemg/dL (NEG-TRACE) Urine Glucose (UA) >=1000mg/dL (NEG) Urine Ketones (Stick) Tracemg/dL (NEG) Urine Blood Trace (NEG) Urine Nitrite Negative (NEG) Urine Bilirubin Negative (NEG) Urine Urobilinogen Dipstick 0.2mg/dL (0.2 mg/dL) Urine Leukocyte Esterase Moderate (NEG) Urine RBC 6-10/HPF (0-2) Urine WBC 11-20/HPF (0-4) Urine Squamous Epithelial Cells Many/LPF Urine Bacteria Few/HPF (0-FEW) Urine Opiates Screen Neg (NEG) Urine Methadone Screen Neg (NEG) Urine Barbiturates Neg (NEG) Urine Phencyclidine Screen Neg (NEG) Urine Amphetamine/Methamphetamine Neg (NEG) Urine Benzodiazepines Screen Neg (NEG) Urine Cocaine Screen Neg (NEG) Urine Cannabinoids Screen Neg (NEG) Urine Ethyl Alcohol Neg (NEG) White Blood Count 6.7x10^3/uL (4.0-11.0) Red Blood Count 4.95x10^6/uL (3.50-5.40) Hemoglobin 14.9g/dL (12.0-15.5) Hematocrit 42.9% (36.0-47.0) Mean Corpuscular Volume 87fL (79-100) Mean Corpuscular Hemoglobin 30pg (25-35) Mean Corpuscular Hemoglobin Concent 35g/dL (31-37) Red Cell Distribution Width 12.7% (11.5-14.5) Platelet Count 167x10^3/uL (140-400) Neutrophils (%) (Auto) 73% (31-73) Lymphocytes (%) (Auto) 20% (24-48) Monocytes (%) (Auto) 6% (0-9) Eosinophils (%) (Auto) 1% (0-3) Basophils (%) (Auto) 1% (0-3) Neutrophils # (Auto) 4.9x10^3uL (1.8-7.7) Lymphocytes # (Auto) 1.3x10^3/uL (1.0-4.8) Monocytes # (Auto) 0.4x10^3/uL (0.0-1.1) Eosinophils # (Auto) 0.1x10^3/uL (0.0-0.7) Basophils # (Auto) 0.0x10^3/uL (0.0-0.2) Prothrombin Time 14.3SEC (11.7-14.0) Prothromb Time International Ratio 1.2 (0.8-1.1) Activated Partial Thromboplast Time 27SEC (24-38) Sodium Level 135mmol/L (136-145) Potassium Level 3.9mmol/L (3.5-5.1) Chloride Level 101mmol/L (98-107) Carbon Dioxide Level 24mmol/L (21-32) Anion Gap 10 (6-14) Blood Urea Nitrogen 14mg/dL (7-20) Creatinine 0.7mg/dL (0.6-1.0) Estimated GFR (Cockcroft-Gault) 92.2 BUN/Creatinine Ratio 20 (6-20) Glucose Level 430mg/dL (70-99) Calcium Level 8.8mg/dL (8.5-10.1) Magnesium Level 1.5mg/dL (1.8-2.4) Total Bilirubin 0.4mg/dL (0.2-1.0) Aspartate Amino Transf (AST/SGOT) 15U/L (15-37) Alanine Aminotransferase (ALT/SGPT) 26U/L (14-59) Alkaline Phosphatase 107U/L (46-116) Troponin I Quantitative < 0.017ng/mL (0.000-0.055) WL-Fii-G-Type Natriuretic Peptide 50pg/mL (0-124) Total Protein 6.7g/dL (6.4-8.2) Albumin 3.4g/dL (3.4-5.0) Albumin/Globulin Ratio 1.0 (1.0-1.7) Lipase 193U/L (73-393) Test 08/04/16 17:30 08/04/16 17:40 08/04/16 20:38 08/04/16 22:45 Troponin I Quantitative < 0.017ng/mL (0.000-0.055) < 0.017ng/mL (0.000-0.055) Glucose (Fingerstick) 383mg/dL (70-99) 356mg/dL (70-99) Test 08/05/16 05:00 08/05/16 08:10 08/05/16 09:23 08/05/16 12:02 White Blood Count 8.3x10^3/uL (4.0-11.0) Red Blood Count 4.54x10^6/uL (3.50-5.40) Hemoglobin 13.5g/dL (12.0-15.5) Hematocrit 40.2% (36.0-47.0) Mean Corpuscular Volume 89fL (79-100) Mean Corpuscular Hemoglobin 30pg (25-35) Mean Corpuscular Hemoglobin Concent 34g/dL (31-37) Red Cell Distribution Width 12.9% (11.5-14.5) Platelet Count 163x10^3/uL (140-400) Neutrophils (%) (Auto) 57% (31-73) Lymphocytes (%) (Auto) 35% (24-48) Monocytes (%) (Auto) 6% (0-9) Eosinophils (%) (Auto) 2% (0-3) Basophils (%) (Auto) 1% (0-3) Neutrophils # (Auto) 4.7x10^3uL (1.8-7.7) Lymphocytes # (Auto) 2.9x10^3/uL (1.0-4.8) Monocytes # (Auto) 0.5x10^3/uL (0.0-1.1) Eosinophils # (Auto) 0.1x10^3/uL (0.0-0.7) Basophils # (Auto) 0.1x10^3/uL (0.0-0.2) Sodium Level 137mmol/L (136-145) Potassium Level 3.7mmol/L (3.5-5.1) Chloride Level 103mmol/L (98-107) Carbon Dioxide Level 23mmol/L (21-32) Anion Gap 11 (6-14) Blood Urea Nitrogen 16mg/dL (7-20) Creatinine 0.7mg/dL (0.6-1.0) Estimated GFR (Cockcroft-Gault) 92.2 Glucose Level 321mg/dL (70-99) Calcium Level 8.6mg/dL (8.5-10.1) Glucose (Fingerstick) 236mg/dL (70-99) 274mg/dL (70-99) 289mg/dL (70-99) Laboratory Tests Test 08/04/16 17:30 08/04/16 17:40 08/04/16 20:38 08/04/16 22:45 Troponin I Quantitative < 0.017ng/mL (0.000-0.055) < 0.017ng/mL (0.000-0.055) Glucose (Fingerstick) 383mg/dL (70-99) 356mg/dL (70-99) Test 08/05/16 05:00 08/05/16 08:10 08/05/16 09:23 08/05/16 12:02 White Blood Count 8.3x10^3/uL (4.0-11.0) Red Blood Count 4.54x10^6/uL (3.50-5.40) Hemoglobin 13.5g/dL (12.0-15.5) Hematocrit 40.2% (36.0-47.0) Mean Corpuscular Volume 89fL (79-100) Mean Corpuscular Hemoglobin 30pg (25-35) Mean Corpuscular Hemoglobin Concent 34g/dL (31-37) Red Cell Distribution Width 12.9% (11.5-14.5) Platelet Count 163x10^3/uL (140-400) Neutrophils (%) (Auto) 57% (31-73) Lymphocytes (%) (Auto) 35% (24-48) Monocytes (%) (Auto) 6% (0-9) Eosinophils (%) (Auto) 2% (0-3) Basophils (%) (Auto) 1% (0-3) Neutrophils # (Auto) 4.7x10^3uL (1.8-7.7) Lymphocytes # (Auto) 2.9x10^3/uL (1.0-4.8) Monocytes # (Auto) 0.5x10^3/uL (0.0-1.1) Eosinophils # (Auto) 0.1x10^3/uL (0.0-0.7) Basophils # (Auto) 0.1x10^3/uL (0.0-0.2) Sodium Level 137mmol/L (136-145) Potassium Level 3.7mmol/L (3.5-5.1) Chloride Level 103mmol/L (98-107) Carbon Dioxide Level 23mmol/L (21-32) Anion Gap 11 (6-14) Blood Urea Nitrogen 16mg/dL (7-20) Creatinine 0.7mg/dL (0.6-1.0) Estimated GFR (Cockcroft-Gault) 92.2 Glucose Level 321mg/dL (70-99) Calcium Level 8.6mg/dL (8.5-10.1) Glucose (Fingerstick) 236mg/dL (70-99) 274mg/dL (70-99) 289mg/dL (70-99) Medications Current Medications Sodium Chloride (Iv Sodium Chloride 0.9% 1000ml Bag) 1,000 ml @ 1,000 mls/hr 1X ONCE IV Last administered on 08/04/16t 11:24; Start 08/04/16 at 11:00; Stop 08/04/16 at 11:59; Status DC Ondansetron HCl 4 mg 4 mg PRN Q8HRS PRN IV NAUSEA/VOMITING; Start 08/04/16 at 14:30; Stop 08/05/16 at 14:29; Status DC Sodium Chloride (Iv Sodium Chloride 0.9% 1000ml Bag) 1,000 ml @ 125 mls/hr Q8H IV Last administered on 08/05/16 06:50; Start 08/04/16 at 14:18; Stop at 14:17; Status DC Acetaminophen (Tylenol) 650 mg PRN Q4HRS PRN PO FEVER Last administered on 08/04 15:31; Start 08/04/16 at 14:30; Stop 08/05/16 at 14:29; Status DC Nitroglycerin (Nitrostat) 0.4 mg PRN Q5MIN PRN SL CHEST PAIN; Start 08/04/16 at 14:30; Stop 08/05/16 at 14:29; Status DC Insulin Aspart (Novolog) 0-5 UNITS TIDWMEALS SQ Last administered on 08/05/16 12:08; Start 08/04/16 at 17:00 Dextrose (Dextrose 50%-Water Syringe) 12.5 gm PRN Q15MIN PRN IV SEE COMMENTS; Start 08/04/16 at 14:30 Acetaminophen/ Hydrocodone Bitart (Lortab 5/325) 1 tab PRN Q6HRS PRN PO PAIN Last administered on 08/04/16 17:41; Start 08/04/16 at 17:30; Stop 08/04/16 at 19:30; Status DC Insulin Aspart (Novolog) 5 units TIDAC SQ Last administered on 08/05/16 12:07 ; Start 08/04/16 at 18:00; Stop 08/05/16 at 14:08; Status DC Insulin Detemir (Levemir) 10 units QHS SQ Last administered on 08/04/16 20:47 ; Start 08/04/16 at 21:00; Stop 08/05/16 at 14:08; Status DC Acetaminophen/ Hydrocodone Bitart (Lortab 5/325) 2 tab PRN Q6HRS PRN PO PAIN Last administered on 08/05/16 08:19; Start 08/04/16 at 19:30 Insulin Aspart (Novolog) 10 units TIDAC SQ ; Start 08/05/16 at 16:30 Insulin Detemir 20 units 20 units QHS SQ ; Start 08/05/16 at 21:00 Magnesium Sulfate/ Dextrose (Magnesium Sulfate PREMIX 2GM) 50 ml @ 25 mls/hr 1X ONCE IV Last administered on 08/05/16 15:15; Start 08/05/16 at 14:30; Stop 08/05/16 at 16:29 Glimepiride (Amaryl) 2 mg DAILY PO ; Start 08/06/16 at 09:00 Active Scripts Active Percocet 5-325 Mg Tablet (Oxycodone/Acetaminophen) 1 Each Tablet 1-2 Tab PO Q4- 6HRS Vitals/I & O Vital Sign - Last 24 Hours 08/04/16 08/04/16 08/04/16 08/04/16 15:59 17:41 19:25 19:25 Temp 98.5 97.8 98.5 97.8 Pulse 71 87 Resp 16 16 18 B/P 125/81 105/89 Pulse Ox 97 96 O2 Delivery Room Air Room Air 08/04/16 08/04/16 08/05/16 08/05/16 22:13 23:50 02:37 07:55 Temp 97.8 97.6 97.8 97.8 97.6 97.8 Pulse 82 64 72 Resp 18 16 16 18 B/P 116/73 111/68 114/82 Pulse Ox 98 97 97 O2 Delivery Room Air Room Air 08/05/16 08/05/16 08/05/16 08/05/16 08:00 08:19 10:32 12:09 Temp 97.8 97.8 Pulse 78 Resp 16 20 16 B/P 94/53 Pulse Ox 97 97 97 O2 Delivery Room Air Room Air Room Air Room Air 08/05/16 14:45 Temp 98.0 98.0 Pulse 75 Resp 17 B/P 102/68 Pulse Ox 98 O2 Delivery Room Air Intake and Output 08/04/16 08/04/16 08/05/16 15:00 23:00 07:00 Intake Total 1000 ml 1540 ml 2000 ml Balance 1000 ml 1540 ml 2000 ml LAWSON ROONEY MD Aug 05, 2016 15:42
[2016-08-05 19:58] VITALS: BP 115/77
[2016-08-05] MEDS ORDERED: INSULIN DETEMIR 300 UNITS/3 ML INSULN.PEN. SQ SCH (21:00)
[2016-08-05 23:40] VITALS: BP 102/72
[2016-08-06] VITALS (7 sets, daily range): BP systolic 102–117; BP diastolic 60–86
[2016-08-06 07:25] LABS: BASO % 1 % (0-3); EOS % 4 % (0-3); HEMATOCRIT 40.8 % (36.0-47.0); HEMOGLOBIN 13.7 g/dL (12.0-15.5); LYMPH # 2.3 x10^3/uL (1.0-4.8); LYMPH % 26 % (24-48); MEAN CORPUSCULAR HEMOGLOBIN 30 pg (25-35); MEAN CORPUSCULAR HGB CONC 34 g/dL (31-37); MEAN CORPUSCULAR VOLUME 88 fL (79-100); MONO % 4 % (0-9); NEUT % 66 % (31-73); PLATELET COUNT 162 x10^3/uL (140-400); RED BLOOD COUNT 4.66 x10^6/uL (3.50-5.40); RED CELL DISTRIBUTION WIDTH 12.8 % (11.5-14.5); WHITE BLOOD COUNT 8.9 x10^3/uL (4.0-11.0)
[2016-08-06 07:53] LABS: CALCIUM 7.9 mg/dL (8.5-10.1); CREATININE 0.5 mg/dL (0.6-1.0); POTASSIUM 3.9 mmol/L (3.5-5.1)
[2016-08-06] MEDS ORDERED: ONDANSETRON PF 4 MG/2 ML VIAL. IV PRN (09:00)
[2016-08-06] MEDS ORDERED: DEXTROSE 50% 25 GM / 50ML DISP.SYRIN. IV PRN (09:00)
[2016-08-06] MEDS ORDERED: ACETAMINOPHEN 325 MG TABLET. PO PRN (09:00)
[2016-08-06] MEDS: GLIMEPIRIDE 2 MG TABLET. PO SCH (09:18)
[2016-08-06] MEDS: INSULIN ASPART 300 UNITS/3 ML INSULN.PEN SQ SCH ×6 (09:24→21:00)
--- NOTE | 2016-08-06 12:52 | PDOC ---
PROGRESS NOTES Chief Complaint Chief Complaint cc: palpitations, sob, newly diagnosed diabetes mellitus plan: fu with card, MPI today check hba1c on levemir 20u qhs, aspart 10u tid glimeride, add metformin given pt has no insurance SW for clinic referral. pt likely need insulin, however, no insurance. dvt ppx History of Present Illness History of Present Illness hyperglycemia headache no chest pain Vitals Vitals Vital Signs Date Time Temp Pulse Resp B/P Pulse Ox O2 Delivery O2 Flow Rate FiO2 08/06/16 11:51 98.2 75 16 112/83 97 Room Air 98.2 Physical Exam General: Alert, Oriented X3, Cooperative, No acute distress, moderate distress Heart: Regular rate, Normal S1, Normal S2, No murmurs, Other (reproducible sternal chest wall pain. ) Lungs: Clear, Other (negative chest retractions and/or other accessory muscle use. ) Abdomen: Normal bowel sounds, Soft, No tenderness, No hepatosplenomegaly Extremities: No edema, Normal pulses Skin: No rashes Labs LABS Laboratory Tests Test 08/05/16 17:05 08/05/16 20:52 08/06/16 06:50 08/06/16 08:27 Glucose (Fingerstick) 281mg/dL (70-99) 331mg/dL (70-99) 266mg/dL (70-99) White Blood Count 8.9x10^3/uL (4.0-11.0) Red Blood Count 4.66x10^6/uL (3.50-5.40) Hemoglobin 13.7g/dL (12.0-15.5) Hematocrit 40.8% (36.0-47.0) Mean Corpuscular Volume 88fL (79-100) Mean Corpuscular Hemoglobin 30pg (25-35) Mean Corpuscular Hemoglobin Concent 34g/dL (31-37) Red Cell Distribution Width 12.8% (11.5-14.5) Platelet Count 162x10^3/uL (140-400) Neutrophils (%) (Auto) 66% (31-73) Lymphocytes (%) (Auto) 26% (24-48) Monocytes (%) (Auto) 4% (0-9) Eosinophils (%) (Auto) 4% (0-3) Basophils (%) (Auto) 1% (0-3) Neutrophils # (Auto) 5.9x10^3uL (1.8-7.7) Lymphocytes # (Auto) 2.3x10^3/uL (1.0-4.8) Monocytes # (Auto) 0.4x10^3/uL (0.0-1.1) Eosinophils # (Auto) 0.3x10^3/uL (0.0-0.7) Basophils # (Auto) 0.0x10^3/uL (0.0-0.2) Sodium Level 135mmol/L (136-145) Potassium Level 3.9mmol/L (3.5-5.1) Chloride Level 103mmol/L (98-107) Carbon Dioxide Level 25mmol/L (21-32) Anion Gap 7 (6-14) Blood Urea Nitrogen 14mg/dL (7-20) Creatinine 0.5mg/dL (0.6-1.0) Estimated GFR (Cockcroft-Gault) 136.0 Glucose Level 243mg/dL (70-99) Calcium Level 7.9mg/dL (8.5-10.1) Test 08/06/16 11:58 Glucose (Fingerstick) 105mg/dL (70-99) Review of Systems Review of Systems no fever, chills, sob or chest pain Assessment and Plan Assessmemt and Plan Problems Medical Problems: (1) Chest pain Status: Acute (2) Hyperglycemia Status: Acute (3) Palpitations Status: Acute Problems: Comment Review of Relevant I have reviewed the following items tami (where applicable) has been applied. Labs Laboratory Tests Test 08/04/16 17:30 08/04/16 17:40 08/04/16 20:38 08/04/16 22:45 Troponin I Quantitative < 0.017ng/mL (0.000-0.055) < 0.017ng/mL (0.000-0.055) Glucose (Fingerstick) 383mg/dL (70-99) 356mg/dL (70-99) Test 08/05/16 05:00 08/05/16 08:10 08/05/16 09:23 08/05/16 12:02 White Blood Count 8.3x10^3/uL (4.0-11.0) Red Blood Count 4.54x10^6/uL (3.50-5.40) Hemoglobin 13.5g/dL (12.0-15.5) Hematocrit 40.2% (36.0-47.0) Mean Corpuscular Volume 89fL (79-100) Mean Corpuscular Hemoglobin 30pg (25-35) Mean Corpuscular Hemoglobin Concent 34g/dL (31-37) Red Cell Distribution Width 12.9% (11.5-14.5) Platelet Count 163x10^3/uL (140-400) Neutrophils (%) (Auto) 57% (31-73) Lymphocytes (%) (Auto) 35% (24-48) Monocytes (%) (Auto) 6% (0-9) Eosinophils (%) (Auto) 2% (0-3) Basophils (%) (Auto) 1% (0-3) Neutrophils # (Auto) 4.7x10^3uL (1.8-7.7) Lymphocytes # (Auto) 2.9x10^3/uL (1.0-4.8) Monocytes # (Auto) 0.5x10^3/uL (0.0-1.1) Eosinophils # (Auto) 0.1x10^3/uL (0.0-0.7) Basophils # (Auto) 0.1x10^3/uL (0.0-0.2) Sodium Level 137mmol/L (136-145) Potassium Level 3.7mmol/L (3.5-5.1) Chloride Level 103mmol/L (98-107) Carbon Dioxide Level 23mmol/L (21-32) Anion Gap 11 (6-14) Blood Urea Nitrogen 16mg/dL (7-20) Creatinine 0.7mg/dL (0.6-1.0) Estimated GFR (Cockcroft-Gault) 92.2 Glucose Level 321mg/dL (70-99) Calcium Level 8.6mg/dL (8.5-10.1) Glucose (Fingerstick) 236mg/dL (70-99) 274mg/dL (70-99) 289mg/dL (70-99) Test 08/05/16 17:05 08/05/16 20:52 08/06/16 06:50 08/06/16 08:27 Glucose (Fingerstick) 281mg/dL (70-99) 331mg/dL (70-99) 266mg/dL (70-99) White Blood Count 8.9x10^3/uL (4.0-11.0) Red Blood Count 4.66x10^6/uL (3.50-5.40) Hemoglobin 13.7g/dL (12.0-15.5) Hematocrit 40.8% (36.0-47.0) Mean Corpuscular Volume 88fL (79-100) Mean Corpuscular Hemoglobin 30pg (25-35) Mean Corpuscular Hemoglobin Concent 34g/dL (31-37) Red Cell Distribution Width 12.8% (11.5-14.5) Platelet Count 162x10^3/uL (140-400) Neutrophils (%) (Auto) 66% (31-73) Lymphocytes (%) (Auto) 26% (24-48) Monocytes (%) (Auto) 4% (0-9) Eosinophils (%) (Auto) 4% (0-3) Basophils (%) (Auto) 1% (0-3) Neutrophils # (Auto) 5.9x10^3uL (1.8-7.7) Lymphocytes # (Auto) 2.3x10^3/uL (1.0-4.8) Monocytes # (Auto) 0.4x10^3/uL (0.0-1.1) Eosinophils # (Auto) 0.3x10^3/uL (0.0-0.7) Basophils # (Auto) 0.0x10^3/uL (0.0-0.2) Sodium Level 135mmol/L (136-145) Potassium Level 3.9mmol/L (3.5-5.1) Chloride Level 103mmol/L (98-107) Carbon Dioxide Level 25mmol/L (21-32) Anion Gap 7 (6-14) Blood Urea Nitrogen 14mg/dL (7-20) Creatinine 0.5mg/dL (0.6-1.0) Estimated GFR (Cockcroft-Gault) 136.0 Glucose Level 243mg/dL (70-99) Calcium Level 7.9mg/dL (8.5-10.1) Test 08/06/16 11:58 Glucose (Fingerstick) 105mg/dL (70-99) Laboratory Tests Test 08/05/16 17:05 08/05/16 20:52 08/06/16 06:50 08/06/16 08:27 Glucose (Fingerstick) 281mg/dL (70-99) 331mg/dL (70-99) 266mg/dL (70-99) White Blood Count 8.9x10^3/uL (4.0-11.0) Red Blood Count 4.66x10^6/uL (3.50-5.40) Hemoglobin 13.7g/dL (12.0-15.5) Hematocrit 40.8% (36.0-47.0) Mean Corpuscular Volume 88fL (79-100) Mean Corpuscular Hemoglobin 30pg (25-35) Mean Corpuscular Hemoglobin Concent 34g/dL (31-37) Red Cell Distribution Width 12.8% (11.5-14.5) Platelet Count 162x10^3/uL (140-400) Neutrophils (%) (Auto) 66% (31-73) Lymphocytes (%) (Auto) 26% (24-48) Monocytes (%) (Auto) 4% (0-9) Eosinophils (%) (Auto) 4% (0-3) Basophils (%) (Auto) 1% (0-3) Neutrophils # (Auto) 5.9x10^3uL (1.8-7.7) Lymphocytes # (Auto) 2.3x10^3/uL (1.0-4.8) Monocytes # (Auto) 0.4x10^3/uL (0.0-1.1) Eosinophils # (Auto) 0.3x10^3/uL (0.0-0.7) Basophils # (Auto) 0.0x10^3/uL (0.0-0.2) Sodium Level 135mmol/L (136-145) Potassium Level 3.9mmol/L (3.5-5.1) Chloride Level 103mmol/L (98-107) Carbon Dioxide Level 25mmol/L (21-32) Anion Gap 7 (6-14) Blood Urea Nitrogen 14mg/dL (7-20) Creatinine 0.5mg/dL (0.6-1.0) Estimated GFR (Cockcroft-Gault) 136.0 Glucose Level 243mg/dL (70-99) Calcium Level 7.9mg/dL (8.5-10.1) Test 08/06/16 11:58 Glucose (Fingerstick) 105mg/dL (70-99) Medications Current Medications Sodium Chloride (Iv Sodium Chloride 0.9% 1000ml Bag) 1,000 ml @ 1,000 mls/hr 1X ONCE IV Last administered on 08/04/16 11:24; Start 08/04/16 at 11:00; Stop 08/04/16 at 11:59; Status DC Ondansetron HCl 4 mg 4 mg PRN Q8HRS PRN IV NAUSEA/VOMITING; Start 08/04/16 at 14:30; Stop 08/05/16 at 14:29; Status DC Sodium Chloride (Iv Sodium Chloride 0.9% 1000ml Bag) 1,000 ml @ 125 mls/hr Q8H IV Last administered on 08/05/16 06:50; Start 08/04/16 at 14:18; Stop at 14:17; Status DC Acetaminophen (Tylenol) 650 mg PRN Q4HRS PRN PO FEVER Last administered on 08/04 15:31; Start 08/04/16 at 14:30; Stop 08/05/16 at 14:29; Status DC Nitroglycerin (Nitrostat) 0.4 mg PRN Q5MIN PRN SL CHEST PAIN; Start 08/04/16 at 14:30; Stop 08/05/16 at 14:29; Status DC Insulin Aspart (Novolog) 0-5 UNITS TIDWMEALS SQ Last administered on 08/05/16 17:09; Start 08/04/16 at 17:00; Stop 08/06/16 at 09:00; Status DC Dextrose (Dextrose 50%-Water Syringe) 12.5 gm PRN Q15MIN PRN IV SEE COMMENTS; Start 08/04/16 at 14:30; Stop 08/06/16 at 09:01; Status DC Acetaminophen/ Hydrocodone Bitart (Lortab 5/325) 1 tab PRN Q6HRS PRN PO PAIN Last administered on 08/04/16 17:41; Start 08/04/16 at 17:30; Stop 08/04/16 at 19:30; Status DC Insulin Aspart (Novolog) 5 units TIDAC SQ Last administered on 08/05/16 12:07 ; Start 08/04/16 at 18:00; Stop 08/05/16 at 14:08; Status DC Insulin Detemir (Levemir) 10 units QHS SQ Last administered on 08/04/16 20:47 ; Start 08/04/16 at 21:00; Stop 08/05/16 at 14:08; Status DC Acetaminophen/ Hydrocodone Bitart (Lortab 5/325) 2 tab PRN Q6HRS PRN PO PAIN Last administered on 08/05/16 20:00; Start 08/04/16 at 19:30 Insulin Aspart (Novolog) 10 units TIDAC SQ Last administered on 08/06/16 12:37 ; Start 08/05/16 at 16:30 Insulin Detemir 20 units 20 units QHS SQ Last administered on 08/05/16 21:05; Start 08/05/16 at 21:00; Stop 08/06/16 at 09:00; Status DC Magnesium Sulfate/ Dextrose (Magnesium Sulfate PREMIX 2GM) 50 ml @ 25 mls/hr 1X ONCE IV Last administered on 08/05/16 15:15; Start 08/05/16 at 14:30; Stop 08/05/16 at 16:29; Status DC Glimepiride (Amaryl) 2 mg DAILY PO Last administered on 08/06/16 09:18; Start 08/06/16 at 09:00 Insulin Detemir (Levemir) 30 units QHS SQ ; Start 08/06/16 at 21:00 Insulin Aspart (Novolog) 0-9 UNITS QIDACHS SQ ; Start 08/06/16 at 11:30 Dextrose (Dextrose 50%-Water Syringe) 12.5 gm PRN Q15MIN PRN IV SEE COMMENTS; Start 08/06/16 at 09:00 Acetaminophen (Tylenol) 650 mg PRN Q6HRS PRN PO FEVER; Start 08/06/16 at 09:00 Ondansetron HCl (Zofran) 4 mg PRN Q6HRS PRN IV NAUSEA/VOMITING; Start 08/06/16 at 09:00 Active Scripts Active Percocet 5-325 Mg Tablet (Oxycodone/Acetaminophen) 1 Each Tablet 1-2 Tab PO Q4- 6HRS Vitals/I & O Vital Sign - Last 24 Hours 08/05/16 08/05/16 08/05/16 08/05/16 14:45 19:30 19:58 20:00 Temp 98.0 98.0 Pulse 75 84 Resp 17 16 16 B/P 102/68 115/77 Pulse Ox 98 97 O2 Delivery Room Air Room Air Room Air 08/05/16 08/06/16 08/06/16 08/06/16 23:40 03:45 07:50 08:10 Temp 97.5 98.1 98.4 97.5 98.1 98.4 Pulse 79 62 74 Resp 22 12 14 B/P 102/72 102/60 108/74 Pulse Ox 97 97 98 O2 Delivery Room Air Room Air Room Air Room Air 08/06/16 11:51 Temp 98.2 98.2 Pulse 75 Resp 16 B/P 112/83 Pulse Ox 97 O2 Delivery Room Air Intake and Output 08/05/16 08/05/16 08/06/16 15:00 23:00 07:00 Intake Total 800 ml Balance 800 ml JE SORIANO MD August 06, 2016 12:52
[2016-08-06] MEDS: ENOXAPARIN 40 MG/0.4 ML SYRINGE. SQ SCH (14:13)
--- NOTE | 2016-08-06 17:26 | PDOC ---
PROGRESS NOTES Subjective Subjective No chest pains. The enzymes have been negative. A stress test was done today and the patient walked for 9 minutes, no significant EKG changes. The patient complained of some chest discomfort and there was a language problem in her expressing this, when I talked to her she explained that her chest wall was hurting when she was trying to walk and taking deep breaths, this is not new. Objective Objective Vital Signs Date Time Temp Pulse Resp B/P Pulse Ox O2 Delivery O2 Flow Rate FiO2 08/06/16 16:30 98.0 60 16 112/65 98 Room Air 98.0 Intake and Output 08/06/16 07:00 Intake Total 800 ml Balance 800 ml Intake Oral 800 ml # Voids 6 Physical Exam Physical Exam No significant changes in cardiac exam. There is minimal tenderness over precordium. Assessment Assessment The patient appears to be stable and compensated cardiac-garza. I do not think that her current problems are angina. Her diabetes is being in treated. Whenever the patient's diabetes is controlled she may be discharged and followed as an outpatient. Problems Medical Problems: (1) Chest pain Status: Acute (2) Hyperglycemia Status: Acute (3) Palpitations Status: Acute Comment Review of Relevant I have reviewed the following items tmai (where applicable) has been applied. Labs Laboratory Tests Test 08/04/16 17:30 08/04/16 17:40 08/04/16 20:38 08/04/16 22:45 Troponin I Quantitative < 0.017ng/mL (0.000-0.055) < 0.017ng/mL (0.000-0.055) Glucose (Fingerstick) 383mg/dL (70-99) 356mg/dL (70-99) Test 08/05/16 05:00 08/05/16 08:10 08/05/16 09:23 08/05/16 12:02 White Blood Count 8.3x10^3/uL (4.0-11.0) Red Blood Count 4.54x10^6/uL (3.50-5.40) Hemoglobin 13.5g/dL (12.0-15.5) Hematocrit 40.2% (36.0-47.0) Mean Corpuscular Volume 89fL (79-100) Mean Corpuscular Hemoglobin 30pg (25-35) Mean Corpuscular Hemoglobin Concent 34g/dL (31-37) Red Cell Distribution Width 12.9% (11.5-14.5) Platelet Count 163x10^3/uL (140-400) Neutrophils (%) (Auto) 57% (31-73) Lymphocytes (%) (Auto) 35% (24-48) Monocytes (%) (Auto) 6% (0-9) Eosinophils (%) (Auto) 2% (0-3) Basophils (%) (Auto) 1% (0-3) Neutrophils # (Auto) 4.7x10^3uL (1.8-7.7) Lymphocytes # (Auto) 2.9x10^3/uL (1.0-4.8) Monocytes # (Auto) 0.5x10^3/uL (0.0-1.1) Eosinophils # (Auto) 0.1x10^3/uL (0.0-0.7) Basophils # (Auto) 0.1x10^3/uL (0.0-0.2) Sodium Level 137mmol/L (136-145) Potassium Level 3.7mmol/L (3.5-5.1) Chloride Level 103mmol/L (98-107) Carbon Dioxide Level 23mmol/L (21-32) Anion Gap 11 (6-14) Blood Urea Nitrogen 16mg/dL (7-20) Creatinine 0.7mg/dL (0.6-1.0) Estimated GFR (Cockcroft-Gault) 92.2 Glucose Level 321mg/dL (70-99) Calcium Level 8.6mg/dL (8.5-10.1) Glucose (Fingerstick) 236mg/dL (70-99) 274mg/dL (70-99) 289mg/dL (70-99) Test 08/05/16 17:05 08/05/16 20:52 08/06/16 06:50 08/06/16 08:27 Glucose (Fingerstick) 281mg/dL (70-99) 331mg/dL (70-99) 266mg/dL (70-99) White Blood Count 8.9x10^3/uL (4.0-11.0) Red Blood Count 4.66x10^6/uL (3.50-5.40) Hemoglobin 13.7g/dL (12.0-15.5) Hematocrit 40.8% (36.0-47.0) Mean Corpuscular Volume 88fL (79-100) Mean Corpuscular Hemoglobin 30pg (25-35) Mean Corpuscular Hemoglobin Concent 34g/dL (31-37) Red Cell Distribution Width 12.8% (11.5-14.5) Platelet Count 162x10^3/uL (140-400) Neutrophils (%) (Auto) 66% (31-73) Lymphocytes (%) (Auto) 26% (24-48) Monocytes (%) (Auto) 4% (0-9) Eosinophils (%) (Auto) 4% (0-3) Basophils (%) (Auto) 1% (0-3) Neutrophils # (Auto) 5.9x10^3uL (1.8-7.7) Lymphocytes # (Auto) 2.3x10^3/uL (1.0-4.8) Monocytes # (Auto) 0.4x10^3/uL (0.0-1.1) Eosinophils # (Auto) 0.3x10^3/uL (0.0-0.7) Basophils # (Auto) 0.0x10^3/uL (0.0-0.2) Sodium Level 135mmol/L (136-145) Potassium Level 3.9mmol/L (3.5-5.1) Chloride Level 103mmol/L (98-107) Carbon Dioxide Level 25mmol/L (21-32) Anion Gap 7 (6-14) Blood Urea Nitrogen 14mg/dL (7-20) Creatinine 0.5mg/dL (0.6-1.0) Estimated GFR (Cockcroft-Gault) 136.0 Glucose Level 243mg/dL (70-99) Calcium Level 7.9mg/dL (8.5-10.1) Test 08/06/16 11:58 08/06/16 16:21 Glucose (Fingerstick) 105mg/dL (70-99) 152mg/dL (70-99) Laboratory Tests Test 08/05/16 20:52 08/06/16 06:50 08/06/16 08:27 08/06/16 11:58 Glucose (Fingerstick) 331mg/dL (70-99) 266mg/dL (70-99) 105mg/dL (70-99) White Blood Count 8.9x10^3/uL (4.0-11.0) Red Blood Count 4.66x10^6/uL (3.50-5.40) Hemoglobin 13.7g/dL (12.0-15.5) Hematocrit 40.8% (36.0-47.0) Mean Corpuscular Volume 88fL (79-100) Mean Corpuscular Hemoglobin 30pg (25-35) Mean Corpuscular Hemoglobin Concent 34g/dL (31-37) Red Cell Distribution Width 12.8% (11.5-14.5) Platelet Count 162x10^3/uL (140-400) Neutrophils (%) (Auto) 66% (31-73) Lymphocytes (%) (Auto) 26% (24-48) Monocytes (%) (Auto) 4% (0-9) Eosinophils (%) (Auto) 4% (0-3) Basophils (%) (Auto) 1% (0-3) Neutrophils # (Auto) 5.9x10^3uL (1.8-7.7) Lymphocytes # (Auto) 2.3x10^3/uL (1.0-4.8) Monocytes # (Auto) 0.4x10^3/uL (0.0-1.1) Eosinophils # (Auto) 0.3x10^3/uL (0.0-0.7) Basophils # (Auto) 0.0x10^3/uL (0.0-0.2) Sodium Level 135mmol/L (136-145) Potassium Level 3.9mmol/L (3.5-5.1) Chloride Level 103mmol/L (98-107) Carbon Dioxide Level 25mmol/L (21-32) Anion Gap 7 (6-14) Blood Urea Nitrogen 14mg/dL (7-20) Creatinine 0.5mg/dL (0.6-1.0) Estimated GFR (Cockcroft-Gault) 136.0 Glucose Level 243mg/dL (70-99) Calcium Level 7.9mg/dL (8.5-10.1) Test 08/06/16 16:21 Glucose (Fingerstick) 152mg/dL (70-99) Microbiology 08/04/16 Urine Culture - Final, Complete 08/04/16 Urine Culture Result 1 (EBONY) - Final, Complete Medications Current Medications Sodium Chloride (Iv Sodium Chloride 0.9% 1000ml Bag) 1,000 ml @ 1,000 mls/hr 1X ONCE IV Last administered on 08/04/16 11:24; Start 08/04/16 at 11:00; Stop 08/04/16 at 11:59; Status DC Ondansetron HCl 4 mg 4 mg PRN Q8HRS PRN IV NAUSEA/VOMITING; Start 08/04/16 at 14:30; Stop 08/05/16 at 14:29; Status DC Sodium Chloride (Iv Sodium Chloride 0.9% 1000ml Bag) 1,000 ml @ 125 mls/hr Q8H IV Last administered on 08/05/16 06:50; Start 08/04/16 at 14:18; Stop at 14:17; Status DC Acetaminophen (Tylenol) 650 mg PRN Q4HRS PRN PO FEVER Last administered on 08/04 15:31; Start 08/04/16 at 14:30; Stop 08/05/16 at 14:29; Status DC Nitroglycerin (Nitrostat) 0.4 mg PRN Q5MIN PRN SL CHEST PAIN; Start 08/04/16 at 14:30; Stop 08/05/16 at 14:29; Status DC Insulin Aspart (Novolog) 0-5 UNITS TIDWMEALS SQ Last administered on 08/05/16 17:09; Start 08/04/16 at 17:00; Stop 08/06/16 at 09:00; Status DC Dextrose (Dextrose 50%-Water Syringe) 12.5 gm PRN Q15MIN PRN IV SEE COMMENTS; Start 08/04/16 at 14:30; Stop 08/06/16 at 09:01; Status DC Acetaminophen/ Hydrocodone Bitart (Lortab 5/325) 1 tab PRN Q6HRS PRN PO PAIN Last administered on 08/04/16 17:41; Start 08/04/16 at 17:30; Stop 08/04/16 at 19:30; Status DC Insulin Aspart (Novolog) 5 units TIDAC SQ Last administered on 08/05/16 12:07 ; Start 08/04/16 at 18:00; Stop 08/05/16 at 14:08; Status DC Insulin Detemir (Levemir) 10 units QHS SQ Last administered on 08/04/16 20:47 ; Start 08/04/16 at 21:00; Stop 08/05/16 at 14:08; Status DC Acetaminophen/ Hydrocodone Bitart (Lortab 5/325) 2 tab PRN Q6HRS PRN PO PAIN Last administered on 08/05/16 20:00; Start 08/04/16 at 19:30 Insulin Aspart (Novolog) 10 units TIDAC SQ Last administered on 08/06/16 16:31 ; Start 08/05/16 at 16:30 Insulin Detemir 20 units 20 units QHS SQ Last administered on 08/05/16 21:05; Start 08/05/16 at 21:00; Stop 08/06/16 at 09:00; Status DC Magnesium Sulfate/ Dextrose (Magnesium Sulfate PREMIX 2GM) 50 ml @ 25 mls/hr 1X ONCE IV Last administered on 08/05/16 15:15; Start 08/05/16 at 14:30; Stop 08/05/16 at 16:29; Status DC Glimepiride (Amaryl) 2 mg DAILY PO Last administered on 08/06/16 09:18; Start 08/06/16 at 09:00 Insulin Detemir (Levemir) 30 units QHS SQ ; Start 08/06/16 at 21:00; Stop at 21:00; Status DC Insulin Aspart (Novolog) 0-9 UNITS QIDACHS SQ Last administered on 08/06/16 16: 30; Start 08/06/16 at 11:30 Dextrose (Dextrose 50%-Water Syringe) 12.5 gm PRN Q15MIN PRN IV SEE COMMENTS; Start 08/06/16 at 09:00 Acetaminophen (Tylenol) 650 mg PRN Q6HRS PRN PO FEVER Last administered on 16:24; Start 08/06/16 at 09:00 Ondansetron HCl (Zofran) 4 mg PRN Q6HRS PRN IV NAUSEA/VOMITING; Start 08/06/16 at 09:00 Insulin Detemir (Levemir) 20 units QHS SQ ; Start 08/06/16 at 21:00 Metformin HCl (Glucophage) 1,000 mg BIDWMEALS PO Last administered on 08/06/16 16:24; Start 08/06/16 at 17:00 Enoxaparin Sodium (Lovenox 40mg Syringe) 40 mg Q24H SQ Last administered on 08/06 14:13; Start 08/06/16 at 13:00 Active Scripts Active Percocet 5-325 Mg Tablet (Oxycodone/Acetaminophen) 1 Each Tablet 1-2 Tab PO Q4- 6HRS Vitals/I & O Vital Sign - Last 24 Hours 08/05/16 08/05/16 08/05/16 08/05/16 19:30 19:58 20:00 23:40 Temp 97.5 97.5 Pulse 84 79 Resp 16 16 22 B/P 115/77 102/72 Pulse Ox 97 97 O2 Delivery Room Air Room Air Room Air 08/06/16 08/06/16 08/06/16 08/06/16 03:45 07:50 08:10 11:51 Temp 98.1 98.4 98.2 98.1 98.4 98.2 Pulse 62 74 75 Resp 12 14 16 B/P 102/60 108/74 112/83 Pulse Ox 97 98 97 O2 Delivery Room Air Room Air Room Air Room Air 08/06/16 08/06/16 14:54 16:30 Temp 98.4 98.0 98.4 98.0 Pulse 87 60 Resp 17 16 B/P 114/86 112/65 Pulse Ox 98 98 O2 Delivery Room Air Room Air Intake and Output 08/05/16 08/05/16 08/06/16 15:00 23:00 07:00 Intake Total 800 ml Balance 800 ml LAWSON ROONEY MD August 06, 2016 17:26
[2016-08-06] MEDS ORDERED: INSULIN DETEMIR 300 UNITS/3 ML INSULN.PEN. SQ SCH ×2 (21:00)
[2016-08-06] MEDS: HYDROcodone/APAP 5/325MG 1 TAB TABLET PO PRN (21:33)
[2016-08-07 03:00] VITALS: BP 122/76
[2016-08-07 05:06] LABS: BASO % 0 % (0-3); EOS % 3 % (0-3); HEMATOCRIT 41.9 % (36.0-47.0); LYMPH # 2.9 x10^3/uL (1.0-4.8); LYMPH % 33 % (24-48); MEAN CORPUSCULAR HEMOGLOBIN 29 pg (25-35); MEAN CORPUSCULAR HGB CONC 33 g/dL (31-37); MEAN CORPUSCULAR VOLUME 88 fL (79-100); MONO % 6 % (0-9); NEUT % 58 % (31-73); PLATELET COUNT 171 x10^3/uL (140-400); RED BLOOD COUNT 4.75 x10^6/uL (3.50-5.40); WHITE BLOOD COUNT 8.7 x10^3/uL (4.0-11.0)
[2016-08-07 05:26] LABS: CALCIUM 8.5 mg/dL (8.5-10.1); CREATININE 0.6 mg/dL (0.6-1.0); GFR 110.2; POTASSIUM 3.7 mmol/L (3.5-5.1)
[2016-08-07 07:00] VITALS: BP 111/71
[2016-08-07] MEDS: GLIMEPIRIDE 2 MG TABLET. PO SCH (07:59)
[2016-08-07] MEDS: INSULIN ASPART 300 UNITS/3 ML INSULN.PEN SQ SCH ×4 (08:02→12:23)
[2016-08-07 11:00] VITALS: BP 111/77
[2016-08-07] MEDS ORDERED: GLIM2TAB2 PO (11:41)
[2016-08-07] MEDS ORDERED: METF-620 PO (11:41)
[2016-08-07] MEDS: ENOXAPARIN 40 MG/0.4 ML SYRINGE. SQ SCH (12:17)
--- NOTE | 2016-08-07 14:09 | PDOC3 ---
Discharge Summary [facility] Date of Admission: Aug 04, 2016 Discharge Date: August 07, 2016 Admitting Diagnosis cc: palpitations, sob, newly diagnosed diabetes mellitus plan: fu with card, MPI today check hba1c on levemir 20u qhs, aspart 10u tid glimeride, add metformin given pt has no insurance SW for clinic referral. pt likely need insulin, however, no insurance. dvt ppx History of Present Illness History of Present Illness hyperglycemia headache no chest pain Vitals Vitals Vital Signs Date Time Temp Pulse Resp B/P Pulse Ox O2 Delivery O2 Flow Rate FiO2 08/06/16 11:51 98.2 75 16 112/83 97 Room Air 98.2 Physical Exam Problems: Final Diagnosis Problems CONSULTS card Brief Hospital Course Ms. Gonzalez is a 41 old F, no PMH, comes for palpitation, was found new onset DM2. MPI neg. pt has no insurance, free clinic list given. cannot afford insulin altho hba1c 11. dc home with glimepiride and metformin, asked pt to fu with pcp garcia, and finger stick daily. dc time 40min. General: Alert, Oriented X3, Cooperative, No acute distress, moderate distress Heart: Regular rate, Normal S1, Normal S2, No murmurs, Other (reproducible sternal chest wall pain. ) Lungs: Clear, Other (negative chest retractions and/or other accessory muscle use. ) Abdomen: Normal bowel sounds, Soft, No tenderness, No hepatosplenomegaly Extremities: No edema, Normal pulses Skin: No rashes Patient History: Patient reports no known family medical history. Problems: Disposition home CONDITION AT DISCHARGE: Improved Diet ada Scheduled Glimepiride (Glimepiride) 2 MG PO DAILY Metformin Hcl (Metformin Hcl) 1,000 MG PO BIDWMEALS Discontinued Medications Oxycodone/Apap 5-325 (Percocet 5-325 Mg Tablet) 1-2 TAB PO Q4-6HRS Follow Up pcp in 2 weeks JE SORIANO MD August 07, 2016 14:09
[2016-08-07 15:00] VITALS: BP 100/64
--- NOTE | 2016-08-11 13:37 | RAD ---
APPROVED REPORT Test Type: Exercise Stress Nurse/Tech: Anisha Lora R.N. Test Indications: C/P, PALPITATIONS Cardiac History: ASTHMA, CHECKING REGARDING diabetes Medications: See Electronic Medical Record Medical History: See Electronic Medical Record Resting ECG: SR w/ inverted T waves in leads I,II,AVL,AVF Resting Heart Rate: 71 bpm Resting Blood Pressure: 107/65mmHg Pretest Chest Pain: No chest pain Nurse/Tech Notes S1S2, lungs CTA Consent: The procedure was explained to the patient in lay terms. Informed consent was witnessed. Tito vargas was entered into [employer]. History and Stress Test performed by Harish Shen R.N. Stress Symptoms fatigue, denied pain while walking but stated she was having palpatations and chest pain scale 5/10 w hen she got back to chair. Dr. Gonzalez here towards the end of recovery period and pt stated she w as ok now- no pain POST EXERCISE Reason for Termination: Reached target heart rate Target HR: Yes Max HR: 152 bpm 100% of Maximum Predicted HR: 152 bpm Exercise duration: 9.08 min:sec, 3 Stage Exercise capacity: 10METs Max Blood Pressure: 142/85mmHg Blood Pressure response to exercise: Normal blood pressure response during stress. Heart Rate response to exercise: wnl Chest Pain: Yes. see above note Arrhythmia: No. ST Change: No. INTERPRETATION Stress EKG Conclusion: There were no significant changes of the ST segment with exercise This patient's chest pain is her chronic chest wall pain. This is a negative stress test for ischemia in a patient that had a good hemodynamic response and a m oderate exercise tolerance.
== END 2016-08-07 15:50 | disposition home or self-care (01) | DRG 639 ==
LOC: ER 10:43 → 2 SOUTH 12:53 → 5 NORTH 08-06 15:57
PROVIDERS: ADMIT Internal Medicine; ATTEND Internal Medicine
DX: E11.65 Type 2 diabetes mellitus with hyperglycemia (principal); R00.2 Palpitations; E83.42 Hypomagnesemia; F41.9 Anxiety disorder, unspecified; Z83.3 Family history of diabetes mellitus; Z88.0 Allergy status to penicillin; Z79.4 Long term (current) use of insulin
CPT/HCPCS: 36415; 71010; 80048; 80053; 81001; 81025; 82947; 83036; 83690; 83735; 83880; 84484; 85027; 85610; 85730; 87086; 93005; 93017; 93306; 96365; 96372; G0481; J1650; J1815; J7030; J7060; 99285-25

== ENCOUNTER 2018-10-16 19:40 | Emergency (ER) | payer SELFPAY ==
[~2018-10-16] VITALS: Ht 165.1 cm; Wt 64.4 kg
[~2018-10-16 19:40] MED LIST changes: +GLIM2TAB2 PO; +METF10007 PO; -OXYC-323 PO; +OXYC1TAB15 PO
[2018-10-16] MEDS ORDERED: IV NORMAL SALINE 1000ML BAG 1,000 ML IV SCH (19:43)
[2018-10-16] MEDS ORDERED: ONDANSETRON PF 4 MG/2 ML VIAL. IV ONE (19:45)
[2018-10-16] MEDS ORDERED: FAMOTIDINE 20 MG/2 ML VIAL IVP ONE (20:00)
[2018-10-16] MEDS ORDERED: fentaNYL PF VIAL 100 MCG/2 ML VIAL IV ONE (20:00)
--- NOTE | 2018-10-16 20:02 | PHYS DOC ---
Past Medical History Past Medical History: No Pertinent History (DARYL WHITE APRN) Past Surgical History: No Surgical History (DARYL WHITE APRN) Alcohol Use: None Drug Use: None (DARYL WHITE APRN) Adult General Chief Complaint Chief Complaint: ABDOMINAL PAIN HPI HPI Patient is a 43 year old female who presents with abdominal pain that started at 1500 today after she ate beef and beans. Patient states she's vomited 3 times today. Patient localizes epigastric stabbing pain that she rates a 9 out of 10. (DARYL WHITE APRN) Review of Systems Review of Systems Constitutional: Denies fever or chills [] Eyes: Denies change in visual acuity, redness, or eye pain [] HENT: Denies nasal congestion or sore throat [] Respiratory: Denies cough or shortness of breath [] Cardiovascular: No additional information not addressed in HPI [] GI: abdominal pain, nausea, vomiting, denies bloody stools or diarrhea [] : Denies dysuria or hematuria [] Musculoskeletal: Denies back pain or joint pain [] Integument: Denies rash or skin lesions [] Neurologic: Denies headache, focal weakness or sensory changes [] Endocrine: Denies polyuria or polydipsia [] All other systems were reviewed and found to be within normal limits, except as documented in this note. (DARYL WHITE APRN) Current Medications Current Medications Current Medications Medications (Trade) Dose Ordered Sig/Radha Start Time Stop Time Status Last Admin Dose Admin Diphenhydramine HCl (Benadryl) 25 mg 1X ONCE 10/16/18 20:45 10/16/18 20:46 DC 10/16/18 20:39 25 MG Famotidine (Pepcid Vial) 20 mg 1X ONCE 10/16/18 20:00 10/16/18 20:01 DC 10/16/18 20:11 20 MG Fentanyl Citrate (Fentanyl 2ml Vial) 50 mcg 1X ONCE 10/16/18 20:00 10/16/18 20:01 DC 10/16/18 20:12 50 MCG Info (CONTRAST GIVEN -- Rx MONITORING) 1 each PRN DAILY PRN 10/16/18 20:30 10/16/18 22:22 DC Insulin Human Regular (HumuLIN R VIAL) 10 unit 1X ONCE 10/16/18 22:00 10/16/18 22:01 DC 10/16/18 22:07 10 UNIT Iohexol (Omnipaque 300 Mg/ml) 75 ml 1X ONCE 10/16/18 20:30 10/16/18 20:31 DC 10/16/18 20:29 75 ML Ondansetron HCl (Zofran) 4 mg 1X ONCE 10/16/18 19:45 10/16/18 19:53 DC 10/16/18 20:13 4 MG Sodium Chloride 1,000 ml @ 1,000 mls/hr 1X ONCE 10/16/18 20:45 10/16/18 21:44 DC 10/16/18 20:55 1,000 MLS/HR (IVAN ARMENDARIZ APRN) Allergies Allergies Allergies Coded Allergies Type Severity Reaction Last Updated Verified Penicillins Allergy Severe Anaphylaxis 01/25/15 Yes Iodinated Contrast- Oral and IV Dye Allergy Intermediate Hives 10/16/18 Yes (IVAN ARMENDARIZ APRN) Physical Exam Physical Exam Constitutional: Well developed, well nourished, no acute distress, non-toxic appearance. [] HENT: Normocephalic, atraumatic, bilateral external ears normal, oropharynx moist, no oral exudates, nose normal. [] Eyes: PERRLA, EOMI, conjunctiva normal, no discharge. [] Neck: Normal range of motion, no tenderness, supple, no stridor. [] Cardiovascular:Heart rate regular rhythm, no murmur [] Lungs & Thorax: Bilateral breath sounds clear to auscultation [] Abdomen: Bowel sounds normal, soft, epigastric tenderness, no masses, no pulsatile masses. [] Skin: Warm, dry, no erythema, no rash. [] Back: No tenderness, no CVA tenderness. [] Extremities: No tenderness, no cyanosis, no clubbing, ROM intact, no edema. [] Neurologic: Alert and oriented X 3, normal motor function, normal sensory function, no focal deficits noted. [] Psychologic: Affect normal, judgement normal, mood normal. [] (DARYL WHITE APRN) Current Patient Data Vital Signs Vital Signs Date Time Temp Pulse Resp B/P (MAP) Pulse Ox O2 Delivery O2 Flow Rate FiO2 10/16/18 22:10 68 18 121/81 (94) 98 Room Air 10/16/18 19:55 98.0 98.0 (REFFITT,IVANTasha Mendez APRN) Lab Values Laboratory Tests Test 10/16/18 19:45 10/16/18 19:58 10/16/18 21:44 Urine Collection Type Unknown Urine Color Yellow Urine Clarity Clear Urine pH 7.0 Urine Specific [place] >=1.030 Urine Protein Negative mg/dL (NEG-TRACE) Urine Glucose (UA) >=1000 mg/dL (NEG) Urine Ketones (Stick) Negative mg/dL (NEG) Urine Blood Large (NEG) Urine Nitrite Negative (NEG) Urine Bilirubin Negative (NEG) Urine Urobilinogen Dipstick 0.2 mg/dL (0.2 mg/dL) Urine Leukocyte Esterase Negative (NEG) Urine RBC >40 /HPF (0-2) Urine WBC 5-10 /HPF (0-4) Urine Bacteria 0 /HPF (0-FEW) Urine Opiates Screen Neg (NEG) Urine Methadone Screen Neg (NEG) Urine Barbiturates Neg (NEG) Urine Phencyclidine Screen Neg (NEG) Urine Amphetamine/Methamphetamine Neg (NEG) Urine Benzodiazepines Screen Neg (NEG) Urine Cocaine Screen Neg (NEG) Urine Cannabinoids Screen Neg (NEG) Urine Ethyl Alcohol Neg (NEG) White Blood Count 6.9 x10^3/uL (4.0-11.0) Red Blood Count 5.04 x10^6/uL (3.50-5.40) Hemoglobin 15.0 g/dL (12.0-15.5) Hematocrit 43.5 % (36.0-47.0) Mean Corpuscular Volume 86 fL (79-100) Mean Corpuscular Hemoglobin 30 pg (25-35) Mean Corpuscular Hemoglobin Concent 35 g/dL (31-37) Red Cell Distribution Width 13.3 % (11.5-14.5) Platelet Count 208 x10^3/uL (140-400) Neutrophils (%) (Auto) 63 % (31-73) Lymphocytes (%) (Auto) 26 % (24-48) Monocytes (%) (Auto) 8 % (0-9) Eosinophils (%) (Auto) 3 % (0-3) Basophils (%) (Auto) 1 % (0-3) Neutrophils # (Auto) 4.3 x10^3/uL (1.8-7.7) Lymphocytes # (Auto) 1.8 x10^3/uL (1.0-4.8) Monocytes # (Auto) 0.5 x10^3/uL (0.0-1.1) Eosinophils # (Auto) 0.2 x10^3/uL (0.0-0.7) Basophils # (Auto) 0.0 x10^3/uL (0.0-0.2) Sodium Level 134 mmol/L (136-145) L Potassium Level 4.5 mmol/L (3.5-5.1) Chloride Level 98 mmol/L (98-107) Carbon Dioxide Level 25 mmol/L (21-32) Anion Gap 11 (6-14) Blood Urea Nitrogen 12 mg/dL (7-20) Creatinine 0.8 mg/dL (0.6-1.0) Estimated GFR (Cockcroft-Gault) 78.3 BUN/Creatinine Ratio 15 (6-20) Glucose Level 470 mg/dL (70-99) H Calcium Level 9.3 mg/dL (8.5-10.1) Total Bilirubin 0.4 mg/dL (0.2-1.0) Aspartate Amino Transferase (AST) 17 U/L (15-37) Alanine Aminotransferase (ALT) 23 U/L (14-59) Alkaline Phosphatase 108 U/L (46-116) Troponin I Quantitative < 0.017 ng/mL (0.000-0.055) Total Protein 7.4 g/dL (6.4-8.2) Albumin 3.6 g/dL (3.4-5.0) Albumin/Globulin Ratio 0.9 (1.0-1.7) L Lipase 140 U/L (73-393) Serum Test, Qualitative Negative (NEG) Glucose (Fingerstick) 407 mg/dL (70-99) H Laboratory Tests 10/16/18 19:58 Laboratory Tests 10/16/18 19:58 Microbiology 10/16/18 Urine Culture - Final, Complete 10/16/18 Urine Culture Result 1 (EBONY) - Final, Complete 10/16/18 Antimicrobic Susceptibility - Final, Complete (IVAN ARMENDARIZ APRN) Lab Values Laboratory Tests Test 10/16/18 19:45 10/16/18 19:58 10/16/18 21:44 Urine Collection Type Unknown Urine Color Yellow Urine Clarity Clear Urine pH 7.0 Urine Specific [place] >=1.030 Urine Protein Negative mg/dL (NEG-TRACE) Urine Glucose (UA) >=1000 mg/dL (NEG) Urine Ketones (Stick) Negative mg/dL (NEG) Urine Blood Large (NEG) Urine Nitrite Negative (NEG) Urine Bilirubin Negative (NEG) Urine Urobilinogen Dipstick 0.2 mg/dL (0.2 mg/dL) Urine Leukocyte Esterase Negative (NEG) Urine RBC >40 /HPF (0-2) Urine WBC 5-10 /HPF (0-4) Urine Bacteria 0 /HPF (0-FEW) Urine Opiates Screen Neg (NEG) Urine Methadone Screen Neg (NEG) Urine Barbiturates Neg (NEG) Urine Phencyclidine Screen Neg (NEG) Urine Amphetamine/Methamphetamine Neg (NEG) Urine Benzodiazepines Screen Neg (NEG) Urine Cocaine Screen Neg (NEG) Urine Cannabinoids Screen Neg (NEG) Urine Ethyl Alcohol Neg (NEG) White Blood Count 6.9 x10^3/uL (4.0-11.0) Red Blood Count 5.04 x10^6/uL (3.50-5.40) Hemoglobin 15.0 g/dL (12.0-15.5) Hematocrit 43.5 % (36.0-47.0) Mean Corpuscular Volume 86 fL (79-100) Mean Corpuscular Hemoglobin 30 pg (25-35) Mean Corpuscular Hemoglobin Concent 35 g/dL (31-37) Red Cell Distribution Width 13.3 % (11.5-14.5) Platelet Count 208 x10^3/uL (140-400) Neutrophils (%) (Auto) 63 % (31-73) Lymphocytes (%) (Auto) 26 % (24-48) Monocytes (%) (Auto) 8 % (0-9) Eosinophils (%) (Auto) 3 % (0-3) Basophils (%) (Auto) 1 % (0-3) Neutrophils # (Auto) 4.3 x10^3/uL (1.8-7.7) Lymphocytes # (Auto) 1.8 x10^3/uL (1.0-4.8) Monocytes # (Auto) 0.5 x10^3/uL (0.0-1.1) Eosinophils # (Auto) 0.2 x10^3/uL (0.0-0.7) Basophils # (Auto) 0.0 x10^3/uL (0.0-0.2) Sodium Level 134 mmol/L (136-145) L Potassium Level 4.5 mmol/L (3.5-5.1) Chloride Level 98 mmol/L (98-107) Carbon Dioxide Level 25 mmol/L (21-32) Anion Gap 11 (6-14) Blood Urea Nitrogen 12 mg/dL (7-20) Creatinine 0.8 mg/dL (0.6-1.0) Estimated GFR (Cockcroft-Gault) 78.3 BUN/Creatinine Ratio 15 (6-20) Glucose Level 470 mg/dL (70-99) H Calcium Level 9.3 mg/dL (8.5-10.1) Total Bilirubin 0.4 mg/dL (0.2-1.0) Aspartate Amino Transferase (AST) 17 U/L (15-37) Alanine Aminotransferase (ALT) 23 U/L (14-59) Alkaline Phosphatase 108 U/L (46-116) Troponin I Quantitative < 0.017 ng/mL (0.000-0.055) Total Protein 7.4 g/dL (6.4-8.2) Albumin 3.6 g/dL (3.4-5.0) Albumin/Globulin Ratio 0.9 (1.0-1.7) L Lipase 140 U/L (73-393) Serum Test, Qualitative Negative (NEG) Glucose (Fingerstick) 407 mg/dL (70-99) H Laboratory Tests 10/16/18 19:58 Laboratory Tests 10/16/18 19:58 (DARYL WHITE APRN) EKG EKG Sinus Rhythm, No STEMI Interpretation Time: [address] Stone (DARYL WHITE APRN) Radiology/Procedures Radiology/Procedures [] (DARYL WHITE APRN) Impressions: [facility] [address] [place] [address] IMAGING REPORT Signed PATIENT: MELISSA ROONEY ACCOUNT: [id number] : 1975 LOCATION: ER AGE: 43 SEX: F EXAM STATUS: REG ER ORD. PHYSICIAN: DARYL WHITE APRN REASON: nausea ,vomiting, pain PROCEDURE: CT ABD PELV W/ IV CONTRST ONLY CT abdomen and pelvis with contrast. HISTORY: Nausea, vomiting, pain CT scan the abdomen pelvis was done using 75 mL Omnipaque 300 contrast. Lung bases are clear. There is no effusion. A liver lesion is not identified. Gallbladder is contracted without a calcified gallstone. Spleen and adrenal glands are normal. Pancreas is normal. There is no mass or hydronephrosis in the kidneys. There is no adenopathy. Patient's had an appendectomy. Uterus and ovaries are normal. There is a small follicle in the right ovary. There is mild dilatation of the mid to distal small bowel. There is moderate stool in the right colon. The pattern is somewhat nonspecific. IMPRESSION: 1. Mild nonspecific small bowel dilatation. 2. Moderate stool right colon. 3. No abdominal or pelvic mass or other acute finding PQRS Compliance Statement: One or more of the following individualized dose reduction techniques were utilized for this examination: 1. Automated exposure control 2. Adjustment of the mA and/or kV according to patient size 3. Use of iterative reconstruction technique Electronically signed by: Parish Cullen MD (10/16/2018 8:51 PM) [facility] DICTATED and SIGNED BY: PARISH CULLEN MD DATE: 10/16/182050 (DARYL WHITE APRN) Course & Med Decision Making Course & Med Decision Making Patient is a 43 year old female who presents with abdominal pain that started at 1500 today after she ate beef and beans. Patient states she's vomited 3 times today. Patient localizes epigastric stabbing pain that she rates a 9 out of 10. Alert and oriented. Skin pink warm and dry. Mucous members are moist. Speaks in full clear sentences. Epigastric abdomen is tender in the rest of abdomen is soft and nontender. Patient denies chest pain, shortness of air, fever, recent illness, numbness or tingling, diarrhea, dysuria symptoms. Lungs are clear to auscultation all lobes. Vital signs are within normal limits. Afebrile. No extremity swelling. Patient states she has not taken any medications for her symptoms before she came. Patient states she has a history of diabetes of which she takes glipizide once a day and Metformin with meals TID and states she also takes bupropion. After patient arrived back to room from CT scan she was very itchy. No respiratory distress. This is likely a reaction to the contrast dye of which she's never had before. Benadryl is ordered and given by nurse. CT ABD PELV shows 1. Mild nonspecific small bowel dilatation. 2. Moderate stool right colon. 3. No abdominal or pelvic mass or other acute finding. After 2 L of normal saline patient's blood sugar is at 407. Patients having nausea and vomiting but unable to keep medications down and therefore she will not be taking her metformin tonight. I have ordered 10 units of insulin. Patient is discharged home on his follow-up with her primary care provider. (DARYL WHITE APRN) Course & Med Decision Making 04/22/18 Spoke with Pt via telephone with CINDY Lorenzo translating as pt speaks Nigerian. Pt was informed of her UTI and need for antibiotic. Rx called in to [facility] [phone] for Bactrim DS 500mg BID x7days. Pt's urine cx positive for EColi with susceptibility on Micro of <20 for Bactrim. (IVAN ARMENDARIZ APRN) Dragon Disclaimer Dragon Disclaimer This electronic medical record was generated, in whole or in part, using a voice recognition dictation system. (DARYL WHITE APRN) Departure Departure Impression: Primary Impression: Abdominal pain Additional Impressions: Nausea & vomiting Hyperglycemia Disposition: HOME, SELF-CARE Condition: STABLE Referrals: IKE GARNICA (PCP) Patient Instructions: Nausea and Vomiting Additional Instructions: Do not take your metformin dose tonight since we have given you insulin. Slowly advance your diet. Follow up with primary care. Drink plenty of fluids. Scripts Ondansetron (ONDANSETRON ODT) 4 Mg Tab.rapdis 1 TAB PO PRN Q6-8HRS, #20 TAB Prov: DARYL WHITE APRN 10/16/18 Problem Qualifiers Primary Impression: Abdominal pain Abdominal location: epigastric Qualified Codes: R10.13 - Epigastric pain Additional Impressions: Nausea & vomiting Vomiting type: unspecified Vomiting Intractability: non-intractable Qualified Codes: R11.2 - Nausea with vomiting, unspecified DARYL WHITE HEALTHCARE SPECIALIST Oct 16, 2018 20:02 REFIVAN [facility] HEALTHC[facility] SPECIALIST Oct 20, 2018 19:59
[2018-10-16 20:04] LABS: BILIRUBIN,URINE NEGATIVE (NEG); CLARITY,URINE CLEAR; COLOR,URINE YELLOW; NITRITE,URINE NEGATIVE (NEG); PROTEIN,URINE NEGATIVE (NEG-TRACE); UROBILINOGEN,URINE 0.2 mg/dL (0.2 mg/dL)
[2018-10-16 20:06] LABS: BASO % 1 % (0-3); EOS # 0.2 x10^3/uL (0.0-0.7); EOS % 3 % (0-3); HEMATOCRIT 43.5 % (36.0-47.0); LYMPH # 1.8 x10^3/uL (1.0-4.8); LYMPH % 26 % (24-48); MEAN CORPUSCULAR HEMOGLOBIN 30 pg (25-35); MEAN CORPUSCULAR HGB CONC 35 g/dL (31-37); MEAN CORPUSCULAR VOLUME 86 fL (79-100); MONO # 0.5 x10^3/uL (0.0-1.1); MONO % 8 % (0-9); NEUT # 4.3 x10^3/uL (1.8-7.7); NEUT % 63 % (31-73); PLATELET COUNT 208 x10^3/uL (140-400); RED BLOOD COUNT 5.04 x10^6/uL (3.50-5.40); RED CELL DISTRIBUTION WIDTH 13.3 % (11.5-14.5); WHITE BLOOD COUNT 6.9 x10^3/uL (4.0-11.0)
[2018-10-16 20:11] LABS: AMPHETAMINE/METHAMPHETAMINE NEG (NEG); BARBITURATES NEG (NEG); BENZODIAZEPINES NEG (NEG); CANNABINOIDS NEG (NEG); COCAINE NEG (NEG); METHADONE NEG (NEG); OPIATES NEG (NEG); PHENCYCLIDINE NEG (NEG)
[2018-10-16 20:14] LABS: RBC,URINE >40 /HPF (0-2)
[2018-10-16 20:15] LABS: BACTERIA,URINE 0 /HPF (0-FEW)
[2018-10-16 20:17] LABS: CALCIUM 9.3 mg/dL (8.5-10.1); CREATININE 0.8 mg/dL (0.6-1.0); GFR 78.3; POTASSIUM 4.5 mmol/L (3.5-5.1); PREG TEST PT QUAL NEGATIVE (NEG)
[2018-10-16 20:22] LABS: ALBUMIN 3.6 g/dL (3.4-5.0); ALBUMIN/GLOBULIN RATIO 0.9 (1.0-1.7); TOTAL BILIRUBIN 0.4 mg/dL (0.2-1.0); TOTAL PROTEIN 7.4 g/dL (6.4-8.2)
[2018-10-16] MEDS ORDERED: IOHEXOL 300 MG/ML 100ML VIAL. IV ONE (20:30)
[2018-10-16] MEDS ORDERED: CONTRAST GIVEN. MC PRN (20:30)
[2018-10-16] MEDS ORDERED: diphenhydrAMINE 50 MG/ML VIAL IVP ONE (20:45)
[2018-10-16] MEDS ORDERED: IV NORMAL SALINE 1000ML BAG 1,000 ML IV ONE (20:45)
--- NOTE | 2018-10-16 20:54 | RAD ---
CT abdomen and pelvis with contrast. HISTORY: Nausea, vomiting, pain CT scan the abdomen pelvis was done using 75 mL Omnipaque 300 contrast. Lung bases are clear. There is no effusion. A liver lesion is not identified. Gallbladder is contracted without a calcified gallstone. Spleen and adrenal glands are normal. Pancreas is normal. There is no mass or hydronephrosis in the kidneys. There is no adenopathy. Patient's had an appendectomy. Uterus and ovaries are normal. There is a small follicle in the right ovary. There is mild dilatation of the mid to distal small bowel. There is moderate stool in the right colon. The pattern is somewhat nonspecific. IMPRESSION: 1. Mild nonspecific small bowel dilatation. 2. Moderate stool right colon. 3. No abdominal or pelvic mass or other acute finding PQRS Compliance Statement: One or more of the following individualized dose reduction techniques were utilized for this examination: 1. Automated exposure control 2. Adjustment of the mA and/or kV according to patient size 3. Use of iterative reconstruction technique Electronically signed by: Parish Cullen MD (10/16/2018 8:51 PM) [facility]
[2018-10-16] MEDS ORDERED: INSULIN REGULAR 100 UNIT/ML 3ML VIAL. IV ONE (22:00)
[2018-10-16] MEDS ORDERED: ONDA4TAB12 PO (22:00)
[2018-10-16 22:10] VITALS: BP 121/81
--- NOTE | 2018-10-17 08:43 | EKG ---
[facility] [address] [place] [address] Test Date: 2018-10-16 Test Time: 20:18:00 Pat Name: MELISSA ROONEY Department: Room: Gender: F Creative Lead: : 1975 Requested By: DARYL WHITE Order Number: [id number] Reading MD: Measurements Intervals [place] Rate: 73 P: -27 IN: 136 QRS: -28 QRSD: 90 T: -26 QT: 414 QTc: 460 Interpretive Statements SINUS RHYTHM LEFTWARD AXIS R-S TRANSITION ZONE IN V LEADS DISPLACED TO THE LEFT QRS(T) CONTOUR ABNORMALITY CONSIDER ANTEROSEPTAL MYOCARDIAL DAMAGE CONSIDER INFERIOR INFARCT POSSIBLY ABNORMAL ECG RI6.01 No previous ECG available for comparison
== END 2018-10-16 22:13 | disposition home or self-care (01) ==
LOC: ER 19:40
DX: R10.13 Epigastric pain (principal); R11.2 Nausea with vomiting, unspecified; R73.9 Hyperglycemia, unspecified; Z88.0 Allergy status to penicillin; Z91.041 Radiographic dye allergy status
CPT/HCPCS: 36415; 74177; 80053; 80307; 81001; 82962; 83690; 84484; 84703; 85025; 87086; 93005; 96361; 96374; 96375; 99285; J1200; J1815; J2405; J3010; J3490; J7030; Q9967; 87186